=== PATIENT | female | born 2000 | race Caucasian/White ===

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

== ENCOUNTER 2021-01-03 13:36 | Emergency (ER) | payer MEDICAID, SELFPAY ==
[2021-01-03 14:06] VITALS: BP 99/60; PULSE 104; RESP 18; TEMP 36.3; O2SAT 99; BMI 29.5
[2021-01-03] MEDS: metoclopramide 5 mg/mL SDV 2 mL 10 MG IVP (15:04)
[2021-01-03] MEDS: sodium chloride 0.9% 1,000 ML 999 ML IV (15:04)
[2021-01-03] MEDS: ondansetron 2 mg/ML SDV 2 mL 4 MG IVP (15:08)
[2021-01-03 15:10] VITALS: BP 113/79; PULSE 105; RESP 18; O2SAT 99
--- NOTE | 2021-01-03 15:12 | PC.NURSE ---
heart tones auscultated at BS, FHT 150 bpm.
[2021-01-03 15:28] LABS: Basophils % 0.3 %; Hematocrit 39.7 % (37.0-47.0); Hemoglobin 13.4 g/dL (11.5-15.3); Lymphocytes # 0.6 10^3/uL (1.5-6.5); Lymphocytes % 4.4 %; Mean Corpuscular HGB Conc 33.8 g/dL (30.0-36.0); Mean Corpuscular Hemoglobin 31.5 pg (28.0-34.0); Mean Corpuscular Volume 93.4 fL (81-99); Mean Platelet Volume 11.7 fL (7.4-10.4); Monocytes # 0.2 10^3/uL (0.2-0.9); Monocytes % 1.7 %; Neutrophils % 93.2 %; Nucleated Red Blood Cells % 0 %; Platelet Count 239 10^3/cmm (130-400); Red Blood Count 4.25 10^6/uL (4.1-5.3); Red Cell Distribution Width 12.3 % (12.1-15.1); White Blood Count 13.8 10^3/uL (4.5-13.0)
[2021-01-03 15:29] LABS: Bilirubin Urine Neg (Negative); Blood Urine Neg (Negative); Glucose Urine UA Norm (Normal); Ketones Urine 2+ (Negative); Nitrate Urine Negative (Negative); Protein Urine Neg (Negative); Urine Appearance SL Hazy (CLEAR); Urine Color Dark Yellow (Yellow); pH Urine 5 (5-7)
[2021-01-03 15:30] LABS: Add Urine Culture? No; Add Urine Microscopic? YES; Bacteria Urine 1+ /hpf; Leukocyte Esterase Urine Trace (Negative); Squamous Epithelial Cell Urine 15-25 /hpf (0-5); Urobilinogen Urine Norm (Negative)
--- NOTE | 2021-01-03 15:51 | ED_ITS ---
HPI - Nausea/Vomiting/Diarrhea General: Chief complaint: Nausea/Vomiting/Diarrhea Stated complaint: 16 WKS PREG, VOMITING, DIARRHEA Time Seen by Provider: 01/03/21 14:44 Source: patient Mode of arrival: ambulatory Limitations: no limitations History of Present Illness: HPI Narrative: 20-year-old female patient presents to the emergency department with nausea vomiting diarrhea since 3 AM this morning. She reports has taken prescribed Zofran, could not tolerate oral dosing as she continues to vomit up the medication. She is approximately 16 weeks . She denies fever, reports chills, she reports recent exposure to her [id number] several days ago who was also experiencing similar symptoms. She reports not able to hold down water. She denies abdominal pain with exception discomfort related to nausea and vomiting. She denies hematemesis or hematochezia. She reports symptoms of urinary tract infection on and off for the past week. She states was going to mention it to her REFERENCE SERVICES HEAD at next appointment. She denies symptoms upon exam. MD elicited complaint: nausea, vomiting and diarrhea Description of vomiting: watery and bilious Description of diarrhea: watery Associated nausea: Yes Associated abdominal pain: No Severity: moderate Associated symtoms: Reports dysuria (Occasional burning), fevers/chills and nausea; Denies anxiety, bloating, chest pain, diaphoresis, headache(s) or palpitations Review of Systems General: Reports: 10 or more systems reviewed and unremarkable except in HPI and below Const: Denies: fever(s), chills or diaphoresis Eyes: Denies: blurry vision or eye redness ENMT: Denies: throat pain, dental pain or disequilibrium Card: Denies: chest pain, palpitations or irregular heart rhythm Resp: Denies: dyspnea, productive cough, non-productive cough or wheezing GI: Reports: nausea, vomiting and diarrhea; Denies: abdominal pain, hematemesis, heartburn, constipation or bloating : Reports: dysuria (Occasional burning); Denies: difficulty voiding, urinary frequency, urinary urgency, urinary hesitancy, urinary incontinence, hematuria, vaginal odor, vaginal bleeding, vaginal discharge or pelvic pain Musc: Denies: neck pain, back pain, joint pain or joint warmth Skin/Breast: Denies: rash, pruritus, erythema, skin tenderness or changes in skin color Neuro: Denies: headache(s), weakness in extremities or behavioral changes Psych: Denies: anxiety or depression Pramod/Lymph: Denies: easy bruising PFSH ED PFSH: Medical History Depression No pertinent past medical history neghx: htn,dm,thyroid,dvt/pe,herpes ---denies partner with herpes PCP: None Onychocryptosis Phalanx fracture, foot Surgical History No history of previous surgery Family History Grandfather Diabetes paternal Thyroid disease Maternal Grandmother Colon cancer maternal---dx age 50's Thyroid disease Maternal Denies family history of Ovarian cancer Hypercholesteremia Breast cancer Hypertension Uterine cancer Stroke Social History Smoking and tobacco status: never smoked Second hand smoke exposure: No Alcohol intake: never Substance/Drug Use: never Lives independently: No Female Reproductive History: Date of last menstrual period: 11/05/19 Physical Exam Const: COMMON NORMALS: patient oriented x3 and alert GENERAL APPEARANCE: cooperative, well kempt, well developed and other (Appears uncomfortable due to vomiting) ORIENTATION/CONSCIOUSNESS: Yes awake, Yes oriented to person, Yes oriented to place, Yes oriented to time and Yes Other orientation findings (Actively vomiting) HENMT: COMMON NORMALS: normocephalic, Normal external nose present and moist oral mucous membranes HEAD & SCALP: normocephalic NOSE: Normal external nose present Eye: COMMON NORMALS: Equal, round and reactive pupils present and EOMs intact bilaterally GENERAL EYE: appearance normal, both eyes and all related structures PUPIL: Yes Equal, round and reactive pupils present Neck/C-Spine: COMMON NORMALS: full ROM and no lymphadenopathy GENERAL: Yes normal visual inspection and Yes trachea midline CERVICAL SPINE: Yes cervical ROM normal Lymph: LYMPHATIC: no lymphadenopathy noted Chest: COMMONS NORMALS: normal inspection of the chest and normal palpation of entire chest wall Resp: COMMON NORMALS: normal respiratory effort, No retractions, No use of accessory muscles and clear to auscultation bilaterally EFFORT & INSPECTION: Yes able to speak in complete sentences, No labored and No audible wheezes AUSCULTATION: clear to auscultation bilaterally Cardio: COMMON NORMALS: regular rate, regular rhythm, S1 normal heart sound present, S2 normal heart sound present and Peripheral pulses 2+ throughout RATE: regular rate RHYTHM: regular rhythm HEART SOUNDS: S1 normal heart sound present and S2 normal heart sound present PERIPHERAL PULSES: Peripheral pulses 2+ throughout GI: COMMON NORMALS: Soft to palpation and non-tender INSPECTION: Yes normal to inspection, No abdominal wall ecchymosis, No abdominal distension, No central obesity, Yes gravid abdomen and Yes other (Actively vomiting) PALPATION: Yes Soft to palpation and No Tenderness to palpation present (GI) : COMMON NORMALS: Yes no CVA tenderness BLADDER/KIDNEY EXAM: Yes no CVA tenderness Back/Pelvis: COMMON NORMALS: no CVA tenderness, thoracic and lumbar spine normal to inspection, no thoracic nor lumbar tenderness, thoraco-lumbar ROM normal and straight leg raise negative bilaterally Extremity: COMMON NORMALS: normal to inspection, full ROM, capillary refill normal and no pedal edema GENERAL: Yes normal exam except as noted Neuro: COMMON NORMALS: patient oriented x3 and no focal motor deficits SENSORIUM/ORIENTATION: Yes alert, Yes oriented to person, Yes oriented to place and Yes oriented to time SPEECH: speech normal GAIT: Yes Normal gait present MOTOR EXAM: 5/5 motor strength present throughout Psych: COMMON NORMALS: mental status grossly normal, Normal thought process pr esent and cooperative APPEARANCE: Yes well kempt ACTIVITY/MOTOR BEHAVIOR: Yes appropriate eye contact THOUGHT PROCESS: Normal thought process present Skin: COMMON NORMALS: no rashes or lesions noted, no wounds, turgor normal, no petechiae and no mottling GENERAL SKIN EXAM: no rashes or lesions noted, elasticity normal and turgor normal Course Vital Signs: Vital signs: Vital Signs Temperature 97.3 F L 01/03/21 14:06 Pulse Rate 98 01/03/21 16:10 Respiratory Rate 18 01/03/21 17:08 Blood Pressure 118/60 01/03/21 16:10 Pulse Oximetry 98 01/03/21 16:10 MDM - Nausea/Vomiting/Diarrhea MDM Narrative: Medical decision making narrative: Pleasant 20-year-old female patient who is 16 weeks presents to the emergency department with intractable vomiting with nausea. heart tones were strong, 150 heart rate. She received IV Reglan and Zofran here in the ED along with IV fluid. Nausea and vomiting stopped. She was able to tolerate ice chips and water here in the ED. She states felt so much better and requests to go home. Serology findings without acute process. Urinalysis did reveal positive white b lood cells and bacteria, negative leukoesterase and nitrates.. She was placed on Macrobid 100 mg twice daily for 5 days. She did state urinary symptoms that have waxed and waned over the past several days. She denied flank pain, lower pubic pain, denied abdominal pain. She did not exhibit vaginal discharge or bleeding. She remained afebrile. White blood count elevated slightly secondary to vomiting. She is advised to return to the emergency department if she developed vomiting despite use of Zofran and Reglan. Lab Data: Labs: Lab Results 01/03/21 01/03/21 01/03/21 Range/Units 14:50 14:50 15:02 WBC 13.8 H (4.5-13.0) 10^3/ uL RBC 4.25 (4.1-5.3) 10^6/u L Hgb 13.4 (11.5-15.3) g/dL Hct 39.7 (37.0-47.0) % MCV 93.4 (81-99) fL MCH 31.5 (28.0-34.0) pg MCHC 33.8 (30.0-36.0) g/dL RDW 12.3 (12.1-15.1) % Plt Count 239 (130-400) 10^3/c mm MPV 11.7 H (7.4-10.4) fL Neut % (Auto) 93.2 % Lymph % (Auto) 4.4 % [place] % (Auto) 1.7 % Eos % (Auto) 0.0 % Baso % (Auto) 0.3 % Neut # (Auto) 12.90 H (1.8-8.0) 10^3/u L Lymph # (Auto) 0.6 L (1.5-6.5) 10^3/u L [place] # (Auto) 0.2 (0.2-0.9) 10^3/u L Eos # (Auto) 0.0 (0.0-0.8) 10^3/u L Baso # (Auto) 0.0 (0.0-0.1) 10^3/u L Nucleated RBC % (a uto) 0 % Nucleated RBCs # 0.0 /100WBC Sodium Cancelled Potassium Cancelled Chloride Cancelled Carbon Dioxide Cancelled Anion Gap Cancelled BUN Cancelled Creatinine Cancelled GFR Calculation Cancelled Glucose Cancelled Calculated Osmolal ity Cancelled Calcium Cancelled Total Bilirubin Cancelled AST Cancelled ALT Cancelled Alkaline Phosphata se Cancelled Total Protein Cancelled Albumin Cancelled Globulin Cancelled Lipase Cancelled Urine Color Dark yellow (Yellow) Urine Appearance Sl hazy (CLEAR) Urine pH 5 (5-7) Ur Specific Gravit y 1.030 (1.005-1.030) Urine Protein Neg (Negative) Urine Glucose (UA) Norm (Normal) Urine Ketones 2+ H (Negative) Urine Blood Neg (Negative) Urine Nitrate Negative (Negative) Urine Bilirubin Neg (Negative) Urine Urobilinogen Norm (Negative) mg/dL Ur Leukocyte Janelle ase Trace H (Negative) Urine RBC None (0-2) /hpf Urine WBC 5-10 H (0-5) /hpf Ur Squamous Epith Cells 15-25 H (0-5) /hpf Amorphous Sediment Not Reportable Urine Bacteria 1+ H (NONE) /hpf 01/03/21 Range/Units 15:48 WBC (4.5-13.0) 10^3/ uL RBC (4.1-5.3) 10^6/u L Hgb (11.5-15.3) g/dL Hct (37.0-47.0) % MCV (81-99) fL MCH (28.0-34.0) pg MCHC (30.0-36.0) g/dL RDW (12.1-15.1) % Plt Count (130-400) 10^3/c mm MPV (7.4-10.4) fL Neut % (Auto) % Lymph % (Auto) % [place] % (Auto) % Eos % (Auto) % Baso % (Auto) % Neut # (Auto) (1.8-8.0) 10^3/u L Lymph # (Auto) (1.5-6.5) 10^3/u L [place] # (Auto) (0.2-0.9) 10^3/u L Eos # (Auto) (0.0-0.8) 10^3/u L Baso # (Auto) (0.0-0.1) 10^3/u L Nucleated RBC % (a uto) % Nucleated RBCs # /100WBC Sodium 135 L Potassium 4.0 Chloride 103 Carbon Dioxide 19 L Anion Gap 17.0 BUN 8 Creatinine 0.4 L GFR Calculation 205.6 H Glucose 97 Calculated Osmolal ity 278 L Calcium 8.2 L Total Bilirubin 0.3 AST 10 ALT 10 Alkaline Phosphata se 76 Total Protein 7.2 Albumin 3.6 Globulin 3.6 Lipase 18 Urine Color (Yellow) Urine Appearance (CLEAR) Urine pH (5-7) Ur Specific Gravit y (1.005-1.030) Urine Protein (Negative) Urine Glucose (UA) (Normal) Urine Ketones (Negative) Urine Blood (Negative) Urine Nitrate (Negative) Urine Bilirubin (Negative) Urine Urobilinogen (Negative) mg/dL Ur Leukocyte Janelle ase (Negative) Urine RBC (0-2) /hpf Urine WBC (0-5) /hpf Ur Squamous Epith Cells (0-5) /hpf Amorphous Sediment Urine Bacteria (NONE) /hpf Discharge Plan Discharge Patient Disposition: Home Clinical Impression: Mild dehydration Nausea & vomiting Qualifiers: Vomiting type: unspecified Vomiting Intractability: intractable Qualified Code(s): R11.2 - Nausea with vomiting, unspecified UTI (urinary tract infection) Qualifiers: Urinary tract infection type: acute cystitis Hematuria presence: without hematuria Qualified Code(s): N30.00 - Acute cystitis without hematuria Condition: Stable Prescriptions: New Macrobid 100 mg capsule 100 mg PO BID 5 Days Qty: 10 RF: 0 Reglan 10 mg tablet 10 mg PO Q6H PRN (Reason: nausea and vomiting) Qty: 10 RF: 0 Zofran 4 mg tablet 4 mg PO Q4H 5 Days Qty: 14 RF: 0 No Action Gummy 400 mcg-35 mg -25 mg-5 mg tablet,chewable 2 tab PO BEDTIME RF: 0 Discharge Orders: Discharge ED (Routine); Ordered 01/03/21 Ordered By: Kandy Lopez Patient Instructions: Opioid Safety Coding Level of Care Code ED Reservations Clerk for Chg Fwd Exam Comprehensive
[2021-01-03 16:10] VITALS: BP 118/60; PULSE 98; RESP 18; O2SAT 98
[2021-01-03 16:18] LABS: Alanine Aminotransferase 10 U/L (0-33); Albumin Level 3.6 g/dL (3.5-5.2); Alkaline Phosphatase 76 IU/L (35-105); Aspartate Amino Transferase 10 U/L (0-32); Blood Urea Nitrogen 8 mg/dL (6-20); Calcium 8.2 mg/dL (8.5-10.5); Carbon Dioxide 19 mmol/L (22-29); Chloride 103 mmol/L (98-107); Globulin 3.6 g/dL (1.3-4.6); Glomerular Filtration Rate 205.6 mL/min (90-130); Glucose 97 mg/dL (65-115); Lipase 18 U/L (13-60); Osmolality Calculated 278 mOsm/kg (285-295); Sodium 135 mmol/L (136-145); Total Bilirubin 0.3 mg/dL (0.15-1.2); Total Protein 7.2 g/dL (6.6-8.7)
[2021-01-03 17:00] VITALS: RESP 18
[2021-01-03 17:08] VITALS: RESP 18
== END 2021-01-03 17:23 | disposition home or self-care (01) ==
PROVIDERS: Emergency Provider Nurse Practitioner Family
DX: N30.00 Acute cystitis without hematuria (principal); R11.2 Nausea with vomiting, unspecified; E86.0 Dehydration
CPT/HCPCS: 80053; 81001; 83690; 85025; 96361; 96374; 96375; 99283; J2405; J2765; J7030

== ENCOUNTER → 2021-01-06 08:25 | Outpatient (BNVA) | payer MEDICAID, SELFPAY | PROVIDERS: Visit Provider Nurse Practitioner Women's Health | DX: Z34.92 Encounter for supervision of normal pregnancy, unspecified, second trimester | CPT/HCPCS: 81000; 87086 ==

== ENCOUNTER → 2021-02-05 07:52 | Outpatient (BNVA) | payer MEDICAID, SELFPAY | PROVIDERS: Visit Provider Obstetrics & Gynecology | DX: Z34.92 Encounter for supervision of normal pregnancy, unspecified, second trimester (principal); B37.3 Candidiasis of vulva and vagina | CPT/HCPCS: 81000; 87481; 87512; 87799 ==

== ENCOUNTER → 2021-02-25 11:05 | Outpatient (BNVA) | payer MEDICAID, SELFPAY | PROVIDERS: Visit Provider Nurse Practitioner Women's Health | DX: Z34.92 Encounter for supervision of normal pregnancy, unspecified, second trimester (principal) | CPT/HCPCS: 81000 ==

== ENCOUNTER → 2021-03-05 09:32 | Outpatient (BNVA) | payer MEDICAID, SELFPAY | PROVIDERS: Visit Provider Obstetrics & Gynecology | DX: Z34.90 Encounter for supervision of normal pregnancy, unspecified, unspecified trimester (principal) | CPT/HCPCS: 81000; 87086; 87481; 87512; 87798; 87799 ==

== ENCOUNTER → 2021-03-25 11:56 | Outpatient (BNVA) | payer MEDICAID, SELFPAY | PROVIDERS: Visit Provider Obstetrics & Gynecology | DX: Z34.92 Encounter for supervision of normal pregnancy, unspecified, second trimester (principal) | CPT/HCPCS: 81000; 82950; 85025 ==

== ENCOUNTER → 2021-03-27 08:39 | Outpatient (BNVA) | payer MEDICAID, SELFPAY | PROVIDERS: Visit Provider Obstetrics & Gynecology | DX: D64.9 Anemia, unspecified (principal) | CPT/HCPCS: 82728; 82746; 83550 ==

== ENCOUNTER 2021-03-31 22:45 | Outpatient (CLI) | payer MEDICAID, SELFPAY ==
[2021-03-31 22:45] VITALS: BMI 33.0
[2021-03-31 23:08] VITALS: BP 118/57; PULSE 80
[2021-03-31 23:38] VITALS: BP 109/53; PULSE 72
[2021-03-31 23:44] LABS: Add Urine Culture? No; Add Urine Microscopic? YES; Bacteria Urine 2+ /hpf; Bilirubin Urine Neg (Negative); Blood Urine Neg (Negative); Calcium Oxalate Crystals Urine 25-40 /hpf; Glucose Urine UA Norm (Normal); Ketones Urine Negative (Negative); Leukocyte Esterase Urine 2+ (Negative); Mucus Urine 1+ /hpf; Nitrate Urine Negative (Negative); Protein Urine Neg (Negative); RBC Urine 0-4 /hpf (0-2); Specific Gravity, Urine 1.025 (1.005-1.030); Squamous Epithelial Cell Urine 15-25 /hpf (0-5); Urine Appearance Cloudy (CLEAR); Urine Color Yellow (Yellow); Urobilinogen Urine Norm (Negative); WBC Urine 25-40 /hpf (0-5); pH Urine 5 (5-7)
[2021-03-31] MEDS: acetaminophen 500 mg Tablet 1000 MG PO (23:45)
[2021-03-31] MEDS: lactated ringers 1,000 ML 999 ML IV (23:46)
[2021-04-01 00:09] VITALS: BP 106/54; PULSE 69
[2021-04-01 00:38] VITALS: BP 104/54; PULSE 69
[2021-04-01] MEDS: lactated ringers 1,000 ML 999 ML IV (00:59)
[2021-04-01] MEDS: ketorolac 30 mg/mL INJ IVP (01:04)
[2021-04-01 01:09] VITALS: BP 114/56; PULSE 67
[2021-04-01 01:38] VITALS: BP 105/51; PULSE 72
[2021-04-01 02:14] VITALS: BP 105/51; PULSE 72; RESP 16
== END 2021-04-01 02:14 | disposition home or self-care (01) ==
LOC: OPOB 22:56 → OBGYN 22:57
PROVIDERS: Visit Provider Obstetrics & Gynecology
DX: O26.899 Other specified pregnancy related conditions, unspecified trimester (principal); Z3A.00 Weeks of gestation of pregnancy not specified; R10.9 Unspecified abdominal pain
CPT/HCPCS: 59025; 81001; 87086; 96360; 96361; 99211; J1885

== ENCOUNTER 2021-04-05 23:08 | Outpatient (CLI) | payer MEDICAID, SELFPAY ==
[2021-04-05 23:19] VITALS: BP 120/56; PULSE 70
[2021-04-05 23:25] VITALS: BMI 31.9
[2021-04-06] MEDS: HYDROcodone-acetaminophen 5-325 mg Tablet 1 TAB PO (00:36)
[2021-04-06 01:53] LABS: Bilirubin Urine Neg (Negative); Blood Urine Neg (Negative); Glucose Urine UA Norm (Normal); Ketones Urine Negative (Negative); Leukocyte Esterase Urine Negative (Negative); Nitrate Urine Negative (Negative); Protein Urine Neg (Negative); Urine Appearance Clear (CLEAR); Urine Color Straw (Yellow); Urobilinogen Urine Norm (Negative); pH Urine 5 (5-7)
[2021-04-06 01:54] LABS: Add Urine Culture? No; Bacteria Urine TRACE /hpf; Squamous Epithelial Cell Urine 0-4 /hpf (0-5); WBC Urine 0-4 /hpf (0-5)
[2021-04-06 02:10] VITALS: BP 115/56; PULSE 60
[2021-04-06 02:20] VITALS: BP 115/56; PULSE 60; RESP 16
== END 2021-04-06 02:30 | disposition home or self-care (01) ==
LOC: OPOB 23:10 → OBGYN 23:12
PROVIDERS: Visit Provider Obstetrics & Gynecology
DX: O46.90 Antepartum hemorrhage, unspecified, unspecified trimester (principal); Z3A.00 Weeks of gestation of pregnancy not specified
CPT/HCPCS: 51702; 59025; 81001; 99211

== ENCOUNTER → 2021-04-16 11:06 | Outpatient (BNVA) | payer MEDICAID, SELFPAY | PROVIDERS: Visit Provider Obstetrics & Gynecology | DX: Z34.80 Encounter for supervision of other normal pregnancy, unspecified trimester (principal) | CPT/HCPCS: 81000 ==

== ENCOUNTER → 2021-04-17 14:36 | Outpatient (BNVA) | payer MEDICAID, SELFPAY | PROVIDERS: Visit Provider Obstetrics & Gynecology | DX: Z34.80 Encounter for supervision of other normal pregnancy, unspecified trimester (principal) | CPT/HCPCS: 81000 ==

== ENCOUNTER → 2021-04-23 10:13 | Outpatient (BNVA) | payer MEDICAID, SELFPAY | PROVIDERS: Visit Provider Obstetrics & Gynecology | DX: Z34.80 Encounter for supervision of other normal pregnancy, unspecified trimester (principal) | CPT/HCPCS: 81000 ==

== ENCOUNTER → 2021-05-06 08:16 | Outpatient (BNVA) | payer MEDICAID, SELFPAY | PROVIDERS: Visit Provider Nurse Practitioner Women's Health | DX: Z34.80 Encounter for supervision of other normal pregnancy, unspecified trimester (principal) | CPT/HCPCS: 81000; 87086 ==

== ENCOUNTER → 2021-05-22 08:06 | Outpatient (BNVA) | payer MEDICAID, SELFPAY | PROVIDERS: Visit Provider Obstetrics & Gynecology | DX: Z34.80 Encounter for supervision of other normal pregnancy, unspecified trimester (principal) | CPT/HCPCS: 81000; 87081 ==

== ENCOUNTER → 2021-05-28 08:50 | Outpatient (BNVA) | payer MEDICAID, SELFPAY | PROVIDERS: Visit Provider Obstetrics & Gynecology | DX: Z34.92 Encounter for supervision of normal pregnancy, unspecified, second trimester (principal) | CPT/HCPCS: 81000 ==

== ENCOUNTER 2021-06-03 19:27 | Outpatient (CLI) | payer MEDICAID, SELFPAY ==
[2021-06-03] VITALS (12 sets, daily range): BP systolic 101–123; BP diastolic 50–68; PULSE 66–75; RESP 16; TEMP 37.1–37.6; BMI 32.5
[2021-06-03 21:35] LABS: Nitrazine Paper, PH Negative
== END 2021-06-03 22:15 | disposition home or self-care (01) ==
LOC: OPOB 19:28 → OBGYN 19:28
PROVIDERS: Obstetrics & Gynecology; Visit Provider Obstetrics & Gynecology
DX: O26.899 Other specified pregnancy related conditions, unspecified trimester (principal); Z3A.00 Weeks of gestation of pregnancy not specified; R10.9 Unspecified abdominal pain; M54.5 Low back pain
CPT/HCPCS: 59025; 83986; 99211

== ENCOUNTER 2021-06-04 09:15 | Outpatient (CLI) | payer MEDICAID, SELFPAY ==
[2021-06-04 09:15] VITALS: RESP 18
[2021-06-04 09:32] VITALS: BP 123/67; PULSE 74
[2021-06-04 09:35] VITALS: TEMP 36.2
[2021-06-04 09:49] VITALS: BP 119/73; PULSE 65
[2021-06-04 10:01] VITALS: BMI 33.0
[2021-06-04 10:03] VITALS: BP 122/73; PULSE 64
[2021-06-04 10:19] VITALS: BP 125/61; PULSE 57
== END 2021-06-04 10:25 | disposition home or self-care (01) ==
LOC: OPOB 09:20 → OBGYN 09:30
PROVIDERS: Visit Provider Obstetrics & Gynecology
DX: O36.8190 Decreased fetal movements, unspecified trimester, not applicable or unspecified (principal); Z3A.00 Weeks of gestation of pregnancy not specified
CPT/HCPCS: 59025; 81000; 87086; 87184

== ENCOUNTER 2021-06-08 08:57 | Outpatient (CLI) | payer MEDICAID, SELFPAY ==
[2021-06-08 09:16] VITALS: BP 125/69; PULSE 75
[2021-06-08 09:23] VITALS: BP 130/77; PULSE 83
[2021-06-08 09:36] VITALS: BP 117/67; PULSE 98
[2021-06-08 09:56] VITALS: BP 115/73; PULSE 76
[2021-06-08 10:16] VITALS: BP 120/68; PULSE 74
[2021-06-08 10:31] VITALS: BP 120/68; PULSE 74; RESP 18; TEMP 36.7
[2021-06-08 18:56] LABS: Nitrazine Paper, PH Negative
== END 2021-06-08 10:25 | disposition home or self-care (01) ==
LOC: OPOB 09:02 → OBGYN 09:03
PROVIDERS: Absent Provider Obstetrics & Gynecology; Family Provider Obstetrics & Gynecology; Visit Provider Obstetrics & Gynecology
DX: O26.899 Other specified pregnancy related conditions, unspecified trimester (principal); Z3A.00 Weeks of gestation of pregnancy not specified; R10.9 Unspecified abdominal pain; N89.8 Other specified noninflammatory disorders of vagina
CPT/HCPCS: 59025; 83986; 99211

== ENCOUNTER → 2021-06-11 09:40 | Outpatient (BNVA) | payer MEDICAID, SELFPAY | PROVIDERS: Family Provider Obstetrics & Gynecology; Visit Provider Obstetrics & Gynecology | DX: Z34.92 Encounter for supervision of normal pregnancy, unspecified, second trimester (principal) | CPT/HCPCS: 81000; 87635 ==

== ENCOUNTER 2021-06-12 17:52 | Inpatient (IN) | payer MEDICAID, SELFPAY ==
[2021-06-12] VITALS (23 sets, daily range): BP systolic 109–139; BP diastolic 60–74; PULSE 55–84; RESP 16–19; TEMP 36.1–36.4; O2SAT 93–100; BMI 32.7
[2021-06-12 17:05] LABS: Actim Prom Positive
[2021-06-12] MEDS: dextrose 5%-lactated ringers 1,000 ML 125 ML IV (18:09)
[2021-06-12 18:26] LABS: Basophils % 0.3 %; Eosinophils % 0.4 %; Hematocrit 40.1 % (37.0-47.0); Hemoglobin 13.3 g/dL (11.5-15.3); Lymphocytes # 1.9 10^3/uL (1.5-6.5); Lymphocytes % 27.7 %; Mean Corpuscular HGB Conc 33.2 g/dL (30.0-36.0); Mean Corpuscular Volume 90.5 fl (81-99); Mean Platelet Volume 12.9 fL (7.4-10.4); Monocytes # 0.4 10^3/uL (0.2-0.9); Monocytes % 6.4 %; Neutrophils # 4.38 10^3/uL (1.8-8.0); Neutrophils % 64.8 %; Nucleated Red Blood Cells % 0 %; Platelet Count 156 10^3/cmm (130-400); Red Blood Count 4.43 10^6/uL (4.1-5.3); White Blood Count 6.8 10^3/uL (4.5-13.0)
[2021-06-12] MEDS: oxytocin 30 UNIT/500 ML BAG IV (19:50)
[2021-06-12] MEDS: fentaNYL 50 mcg/mL INJ 2mL IVP (22:41)
[2021-06-12] MEDS: ondansetron 2 mg/ML SDV 2 mL 4 MG IVP ×2 (22:49→23:58)
[2021-06-12] MEDS: lactated ringers 1,000 ML 999 ML IV (23:04)
[2021-06-13] VITALS (220 sets, daily range): BP systolic 96–145; BP diastolic 51–80; PULSE 48–113; RESP 16–20; TEMP 35.8–37.6; O2SAT 82–100
--- NOTE | 2021-06-13 00:18 | P.ANESASSM_ITS ---
Pre-Anesthetic Assessment Pre-Anesthetic Assessment: Height/Weight: Height 1.7 m Weight 94.801 kg Temp Pulse Resp BP Pulse Ox 97.0 F L 66 19 H 125/74 98 06/12/21 21:34 06/13/21 00:11 06/12/21 22:41 06/12/21 23:07 06/13/21 00:11 Preop Diagnosis: labor pain Proposed Procedure: epidural Familial anesthetic complications: none Was Beta Ina taken within 24 hours: N/A Was Clonidine taken within 24 hours: N/A Social: Social History: No alcohol and No tobacco Exam: Pre-Anes Outpt Exam: alert, oriented x 3, clear to auscultation bilaterally and regular rate & rhythm Airway: Submandibular: WNL Cervical ROM: WNL MP: 2 Dentition: Full Pulmonary: Pulmonary: None reported CV/HEM: CV/HEM: Anemia : : UTI Hepatic: Hepatic: None reported GI: GI: GERD Metabolic: Metabolic: None reported Musc/skel: Musc/skel: None reported Neuropsych: Neuropsych: None reported Comments: PTSD Anesthetic Plan: ASA status: 2 Anesthesia: Regional (specify below) Risk of > 500 ml blood loss (7ml/kg in children): No Meds/Allergies Current Medications: Current Medications Generic Name Dose Route Start Last Admin Trade Name Freq PRN Reason Stop Dose Admin Dextrose/Lactated Ringer's 1,000 mls @ 125 m ls/hr 06/12/21 17:30 06/12/21 18:09 Dextrose 5%-Lact ated Ringers IV 125 mls/hr .Q8H ROOPA Administration Ropivacaine 200 mg in 100 mls @ 13 mls/hr 06/12/21 19:30 06/12/21 20:40 Naropin Premix EPIDURAL Not Given .Q7H42M ROOPA Oxytocin 30 unit in 500 ml s @ 1 mls/hr 06/12/21 19:30 06/12/21 21:50 Pitocin IV 5 milliunit/min .Q24H ROOPA 5 mls/hr Titration Protocol 1 MILLIUNIT/MIN Ondansetron HCl 4 mg 06/12/21 17:23 06/12/21 22:49 Ondansetron 2 Mg /Ml Sdv 2 Ml IVP 4 mg Q4H PRN Administration NAUSEA AND VOMITI NG PFSH Anesthesia 2 PFSH: Medical History Depression No pertinent past medical history neghx: htn,dm,thyroid,dvt/pe,herpes ---denies partner with herpes PCP: None Surgical History No history of previous surgery Family History Grandfather Diabetes paternal Thyroid disease Maternal Grandmother Colon cancer maternal---dx age 50's Thyroid disease Maternal Denies family history of Ovarian cancer Hypercholesteremia Breast cancer Hypertension Uterine cancer Stroke Social History Smoking and tobacco status: never smoked Female Reproductive History: Date of last menstrual period: 11/05/19 : 1 Data Anesthesia CBC & Chem 7: 06/12/21 17:50 Other Labs: Laboratory Results - last 48 hr 06/12/21 06/12/21 16:48 17:50 WBC 6.8 RBC 4.43 Hgb 13.3 Hct 40.1 MCV 90.5 MCH 30.0 MCHC 33.2 RDW 12.0 L Plt Count 156 MPV 12.9 H Neut % (Auto) 64.8 Lymph % (Auto) 27.7 [place] % (Auto) 6.4 Eos % (Auto) 0.4 Baso % (Auto) 0.3 Neut # (Auto) 4.38 Lymph # (Auto) 1.9 [place] # (Auto) 0.4 Eos # (Auto) 0.0 Baso # (Auto) 0.0 Nucleated RBC % (auto) 0 Nucleated RBCs # 0.0 Insulin-like GF I Positive Cardiac Studies: No Data to Display
--- NOTE | 2021-06-13 00:52 | P.ANES_ITS ---
Anesthesia Procedures Procedure/Date: 06/13/21 epidural Procedure Narrative: epidural complete, bolus given, epidural pump initiated with FIELD PARTY MANAGER education given, vitals taken during procedure using OBIX system and satisfactory throughout, patient admits to decrease pain, report of procedure to OB RN Epidural: Time Out Performed: Yes Consents Signed: Procedure Consent Consent: requested by attending/covering physician, from patient, risks and benefits reviewed and patient agrees to proceed Lumbar Level: L3-L4 Epidural position: sitting Epidural procedure: sterile prep of area, 1% lidocaine to numb the area (3 mL), 18 g needle, negative for paresthesia passed, neg for paresthesia, test dose given, 1.5% xylocaine 1:200k epi (5 mL), 0.2% Ropivacaine bolus ml (5 mL), placed PCEA, no systemic response, sterile dressing applied, L.U.D. no apparent complications and 0.2% Ropiavacaine @ mls/hr (13 mL/hr)
[2021-06-13] MEDS: lactated ringers 1,000 ML 999 ML IV (01:07)
--- NOTE | 2021-06-13 01:08 | PC.NURSE ---
RN at bedside, patient educated that may be indicated if there are concerns with the baby's heart beat. Patient and significant other verbalize understanding and all questions answered at this time.
[2021-06-13] MEDS: metoclopramide 5 mg/mL SDV 2 mL IV (04:53)
[2021-06-13] MEDS: dextrose 5%-lactated ringers 1,000 ML 125 ML IV (05:00)
--- NOTE | 2021-06-13 06:53 | ANES.PROC ---
Anesthesia Procedures Procedure/Date: 06/13/21 epidural bolus Procedure Narrative: I was called about patient having left hip pain with contraction following epidural placement. Patient states 10/10 pain. After assessing the epidural, I gave 10 mL of 2% lidocaine in her epidural catheter. Report to OB RN
--- NOTE | 2021-06-13 08:58 | PM.OPHPUD ---
Labor & Delivery H&P Update Date of Procedure: June 13, 2021 Date H&P Performed: 06/11/21 H&P update information: I have reviewed H&P completed within last 30 days, I have examined patient prior to procedure, Changes to prior documentation as noted here and H&P is in [facility] [place] EMR on date indicated Changes to previous documentation: Ruptured membranes with cervix 1, 75 and 3 per RN at initial exam Admission Diagnosis: Preop diagnosis: labor pain
--- NOTE | 2021-06-13 09:03 | ANES.PROC ---
Anesthesia Procedures Procedure/Date: 06/13/21 Other Information: Pt with pressure and hip pain. Dilated to 10 with small cervical lip. Lidocaine 5cc and Fentanyl 100 mcg bolus given. some relief expressed
--- NOTE | 2021-06-13 11:25 | PM.DELIVERY ---
Delivery Note: Date of delivery: June 13, 2021 - PRE-DELIVERY DIAGNOSIS: 21-year-old 1 para 0 at 39 weeks and 2 days Premature rupture of membranes GBS positive---received Ancef Meconium-stained amniotic fluid POST-DELIVERY DIAGNOSIS: Vaginal delivery on 06/13/2021 PROCEDURE: Vaginal delivery on 06/13/2021 ANESTHESIA: Epidural anesthesia, local anesthesia with 2% lidocaine DELIVERING PHYSICIAN: Inez Shields FACOG PRE-DELIVERY COURSE: Ms. Wright is a 21 1 para 0 at 39 weeks and 2 days who presented to labor and delivery with reports of leaking of fluid that was clear that started at 4 PM. On examination on Labor and Delivery showed a category 1 tracing and no contractions on the monitor. Cervix was 1 cm 75% and -3 station and cephalic. Nitrazine was inconclusive and so active and PROM was done which was positive. She was admitted to labor and delivery with premature rupture of membranes. She was observed for 2 hours and made no cervical change and had only occasional contractions. She was started on Pitocin titrated to a maximum of 5 mIU and with this she started to have irregular contractions. She made cervical change 3 cm and was pretty uncomfortable and an epidural was placed. After the epidural she was noted to be 4 cm and was noted to have a 4 x 4. At this time it was noted that she had meconium stained amniotic fluid but is previous to this fluid was clear. After the epidural she had a couple of late decelerations which resolved with position change and she had a baseline change from the 120s to 110s but variability was moderate and accelerations were present-overall reassuring. Pitocin was turned off at this time and she was observed and tracing returned to category 1. She was aracely every 2 to 3 minutes and made cervical change to about 6 cm and then made no further cervical change. She was restarted on Pitocin and she made no further cervical change and contractions had spaced out every 6 minutes. Pitocin was started again and try to draw a maximum of 5 international units. Around this time she started to get very uncomfortable with a lot of left hip pain and she was dosed epidural with lidocaine by anesthesia. tracing again started to develop late decelerations and as a result Pitocin was turned off and position changes oxygen and fluid bolus was done after which tracing returned to category 1. Artificial rupture of membranes-4 back was performed at 6:20 AM with thick meconium fluid at which point she was 7 cm 100% and -1 station. She made steady cervical change after this and will periodically have late decelerations which responded to position change and then the tracing will return to category 1. She was fully dilated at 10 AM and set up in lithotomy position ready to push at 10:11 AM. The sample puller Dr. Lozano was notified and was present at time of delivery: 1 amniotic fluid. DELIVERY NOTE: She was set up in lithotomy position and was pushing effectively. She was noted to be +3 station and continued pushing well. The head delivered in CHARITY position, nuchal cord x1 present. The shoulders and rest of the body followed with her next push-the posterior and delivered before the anterior shoulder.. The cord was clamped and cut and baby handed to the waiting RN and sample puller Dr. Kulkarni. The placenta delivered spontaneously intact with membranes and was discarded. The fundus was noted to be firm and well contracted. The vagina and cervix were inspected and no cervical or sulcal lacerations were noted. The perineum was intact except for second-degree perineal tear which was repaired with 3-0 Vicryl in a continuous interlocking fashion. Good hemostasis and reapproximation was obtained. Rectal exam was performed and intact mucosa was confirmed. Baby boy born at 11:45 AM on 06/13/2021 with 8/9, weighing 7 pounds 15 ounces, 3610 g, 21 inches long. Placenta was delivered spontaneously intact with membranes at 10:51 AM. Cotyledons were intact , centrally inserted umbilical cord with 3 vessels noted. Estimated blood loss 300 -mL. Complications-none, both baby and mom the were left to recover in a stable condition. This documentation was created by [employer] precision optics technician software (known for inherent precision optics technician error). Every effort was made to assure accuracy of precision optics technician. Any obvious errors or omissions should be clarified with the author of the document. Coding Level of Care Code Acute Director Emergency Services for Tay Hugo
--- NOTE | 2021-06-13 15:50 | PC.NURSE ---
Patient ambulated to room OB8. Baby transported in crib. Oriented to room. Patient tolerated well and encouraged to ambulate around room without assistance at this time.
[2021-06-13] MEDS: ibuprofen 800 mg tablet PO ×2 (16:05→21:21)
[2021-06-13] MEDS: benzocaine-menthol 78 gm Canister 1 SPRAY TOPICAL (18:27)
[2021-06-13] MEDS: docusate sodium 100 mg Capsule PO (18:44)
[2021-06-13 23:11] LABS: Hematocrit 27.8 % (37.0-47.0); Hemoglobin 8.9 g/dL (11.5-15.3); Mean Corpuscular Hemoglobin 29.9 pg (28.0-34.0); Mean Corpuscular Volume 93.3 fl (81-99); Mean Platelet Volume 12.8 fL (7.4-10.4); Platelet Count 186 10^3/cmm (130-400); Red Blood Count 2.98 10^6/uL (4.1-5.3); Red Cell Distribution Width 12.5 % (12.1-15.1); White Blood Count 16.4 10^3/uL (4.5-13.0)
[2021-06-14 00:59] VITALS: BP 111/67; PULSE 89; RESP 17; O2SAT 97
[2021-06-14 04:30] VITALS: BP 105/65; PULSE 72; RESP 15; TEMP 36.7; O2SAT 97
[2021-06-14] MEDS: prenatal vitamin Capsule 1 CAP PO (08:54)
[2021-06-14] MEDS: ibuprofen 800 mg tablet PO ×3 (08:54→20:50)
[2021-06-14] MEDS: docusate sodium 100 mg Capsule PO ×2 (08:54→18:23)
--- NOTE | 2021-06-14 09:18 | PC.NURSE ---
Patient resting with eyes closed on couch. Call light visible and as close as will reach. Visitor reminded to push call light if they need anything.
[2021-06-14 09:29] LABS: Hematocrit 28.5 % (37.0-47.0); Mean Corpuscular HGB Conc 31.6 g/dL (30.0-36.0); Mean Corpuscular Hemoglobin 29.7 pg (28.0-34.0); Mean Corpuscular Volume 94.1 fl (81-99); Mean Platelet Volume 13.3 fL (7.4-10.4); Platelet Count 184 10^3/cmm (130-400); Red Blood Count 3.03 10^6/uL (4.1-5.3); Red Cell Distribution Width 12.6 % (12.1-15.1); White Blood Count 13.4 10^3/uL (4.5-13.0)
[2021-06-14 09:50] VITALS: BP 110/72; PULSE 75; RESP 16; TEMP 36.8; O2SAT 98
[2021-06-14] MEDS: HYDROcodone-acetaminophen 5-325 mg Tablet PO (10:32)
--- NOTE | 2021-06-14 12:49 | PC.NURSE ---
Patient provided towels for showering at this time.
--- NOTE | 2021-06-14 14:26 | PM.PN ---
Subjective Subjective: Interval history: SUBJECTIVE: Veena is doing well today. She states that she is a little sore on her perineum but denies any pain and states that ibuprofen helps this. She is not breast-feeding and is formula feeding without any difficulty. She denies heavy vaginal bleeding although her bleeding is heavier than her menstrual cycle. She denies fever, chills, shortness of breath and chest pain. She is voiding without any difficulty and denies dysuria. She is passing gas and tolerating regular diet. No other questions or concerns today OBJECTIVE/PHYSICAL EXAM: Gen.: No acute distress Heart: S1-S2 heard, regular rate and rhythm Lungs: Clear to auscultation bilaterally Abdomen: Soft, fundus firm below umbilicus Legs: No calf tenderness, +1 bilateral pitting pedal edema. ASSESSMENT AND PLAN: 21-year-old 1 para 1 status post vaginal delivery, day #1 -Continue routine care-p.o. pain medication as needed -Encourage ambulation -Ice packs to perineum as needed -Hemoglobin stable with vital signs stable -Anticipate discharge home tomorrow as baby is staying till tomorrow given GBS positive status during labor. Vitals/I&O/Wt Last Vital Signs Temp 98.2 F 06/14/21 09:50 Pulse 75 06/14/21 09:50 Resp 16 06/14/21 09:50 BP 110/72 06/14/21 09:50 Pulse Ox 98 06/14/21 09:50 06/13/21 06/14/21 06/14/21 22:59 06:59 14:59 Intake Total 955.8 / 1534.701 Output Total 600 / 800 950 / 1750 Balance 355.8 / 734.701 -950 / -215.299 Weight last 48 hrs Weight 209 lb Physical Exam Urinary Catheter Management^: Clemons: Cath Placed During This Visit: yes, but has since been removed by the nurse Reason for Continuing Indwelling Catheter: Decision to DC Catheter Urinary Catheter Date of Insertion: 06/13/21 Urinary Catheter Time of Insertion: 03:47 Date Urinary Catheter Removed: 06/13/21 Time Urinary Catheter Discontinued: 10:10 Data : 06/14/21 08:45 Attestations Medical Necessity Statement*: Patient needs to stay for 1 or 2 more midnights to recover from delivery Coding Level of Care Code Acute Assistant Education Director for Tay Hugo
[2021-06-14 15:28] VITALS: BP 112/68; PULSE 73; RESP 18; TEMP 36.5; O2SAT 98
--- NOTE | 2021-06-14 17:05 | PC.NURSE ---
Patient sitting on couch holding baby. Call light within sight and as close as possible.
[2021-06-14 21:40] VITALS: BP 125/78; PULSE 72; RESP 17; TEMP 36.8; O2SAT 98
[2021-06-15 04:41] VITALS: BP 95/57; PULSE 77; RESP 15; TEMP 36.7; O2SAT 98
--- NOTE | 2021-06-15 06:30 | P.DS_ITS ---
Discharge Providers OBSERVER HELPER Date of Admission: 06/12/21 17:52 Date of Discharge: 06/15/21 Attending Provider at Admission: Inez Yates MD Attending Provider at Discharge: Inez Yates MD PRE-DELIVERY DIAGNOSIS: 21-year-old 1 para 0 at 39 weeks and 2 days Premature rupture of membranes GBS positive---received Ancef Meconium-stained amniotic fluid POST-DELIVERY DIAGNOSIS: Vaginal delivery on 06/13/2021 PROCEDURE: Vaginal delivery on 06/13/2021 ANESTHESIA: Epidural anesthesia, local anesthesia with 2% lidocaine DELIVERING PHYSICIAN: Inez Shields FACOG PRE-DELIVERY COURSE: Ms. Wright is a 21 1 para 0 at 39 weeks and 2 days who presented to labor and delivery with reports of leaking of fluid that was clear that started at 4 PM. On examination on Labor and Delivery showed a category 1 tracing and no contractions on the monitor. Cervix was 1 cm 75% and -3 station and cephalic. Nitrazine was inconclusive and so active and PROM was done which was positive. She was admitted to labor and delivery with premature rupture of membranes. She was observed for 2 hours and made no cervical change and had only occasional contractions. She was started on Pitocin titrated to a maximum of 5 mIU and with this she started to have irregular contractions. She made cervical change 3 cm and was pretty uncomfortable and an epidural was placed. After the epidural she was noted to be 4 cm and was noted to have a 4 x 4. At this time it was noted that she had meconium stained amniotic fluid but is previous to this fluid was clear. After the epidural she had a couple of late decelerations which resolved with position change and she had a baseline change from the 120s to 110s but variability was moderate and accelerations were present-overall reassuring. Pitocin was turned off at this time and she was observed and tracing returned to category 1. She was aracely every 2 to 3 minutes and made cervical change to about 6 cm and then made no further cervical change. She was restarted on Pitocin and she made no further cervical change and contractions had spaced out every 6 minutes. Pitocin was started again and try to draw a maximum of 5 international units. Around this time she started to get very uncomfortable with a lot of left hip pain and she was dosed epidural with lidocaine by anesthesia. tracing again started to develop late decelerations and as a result Pitocin was turned off and position changes oxygen and fluid bolus was done after which tracing returned to category 1. Artificial rupture of membranes-4 back was performed at 6:20 AM with thick meconium fluid at which point she was 7 cm 100% and -1 station. She made steady cervical change after this and will periodically have late decelerations which responded to position change and then the tracing will return to category 1. She was fully dilated at 10 AM and set up in lithotomy position ready to push at 10:11 AM. The barrel stave inspector Dr. Lozano was notified and was present at time of delivery: 1 amniotic fluid. DELIVERY NOTE: She was set up in lithotomy position and was pushing effectively. She was noted to be +3 station and continued pushing well. The head delivered in CHARITY position, nuchal cord x1 present. The shoulders and rest of the body followed with her next push-the posterior and delivered before the anterior shoulder.. The cord was clamped and cut and baby handed to the waiting RN and barrel stave inspector Dr. Kulkarni. The placenta delivered spontaneously intact with membranes and was discarded. The fundus was noted to be firm and well contracted. The vagina and cervix were inspected and no cervical or sulcal lacerations were noted. The perineum was intact except for second-degree perineal tear which was repaired with 3-0 Vicryl in a continuous interlocking fashion. Good hemostasis and reapproximation was obtained. Rectal exam was performed and intact mucosa was confirmed. Baby boy born at 11:45 AM on 06/13/2021 with 8/9, weighing 7 pounds 15 ounces, 3610 g, 21 inches long. Placenta was delivered spontaneously intact with membranes at 10:51 AM. Cotyledons were intact , centrally inserted umbilical cord with 3 vessels noted. Estimated blood loss 300 -mL. Complications-none, both baby and mom the were left to recover in a stable condition. HOSPITAL COURSE: She underwent an uncomplicated vaginal delivery on 06/13/2021. She did well on day 0 and was ambulating well, tolerating regular diet, voiding freely, passing flatus. She was bottlefeeding without difficulty and bonding well with her son. Pain was well-controlled with by mouth pain medication. She denied nausea, vomiting, fever, chills, shortness of breath, leg pain. She had moderate vaginal bleeding. On day # 1 she continued to do well with stable vital signs and hemoglobin at 8.9. This was a pretty significant drop from a predelivery value of 13 given very minimal EBL so hemoglobin was repeated in 12 hours and was stable at 9. This is likely hemodilution effect as I think she was hemoconcentrated at time of admission. Vital signs throughout were stable. She continued to do well on day #2 with stable vital signs. Minimal vaginal bleeding. She was discharged home on day 2 in a stable condition. Warning signs for endometritis, mastitis, DVT/PE were reviewed with her. Post delivery activity restrictions were also reviewed with her at all her questions were answered to her satisfaction. She and Dr. Childers have not discussed a plan for contraception and so she is unsure about what she wants to do. This will be discussed at her 6-week visit. EXAM AT DISCHARGE: Gen.: No acute distress Heart: S1-S2 heard, regular rate and rhythm Lungs: Clear to auscultation bilaterally Abdomen: Soft, fundus firm below umbilicus Legs: No calf tenderness, trace bilateral pitting pedal edema. CONDITION AT DISCHARGE: Stable This documentation was created by My e[employer] large animal husbandry technician software (known for inherent large animal husbandry technician error). Every effort was made to assure accuracy of large animal husbandry technician. Any obvious errors or omissions should be clarified with the author of the document. Reason for Visit Reason for Visit: Vaginal Discharge Information Peripartum Data: Delivery Method: Vaginal Physical Exam Urinary Catheter Management^: Clemons: Cath Placed During This Visit: yes, but has since been removed by the nurse Reason for Continuing Indwelling Catheter: Decision to DC Catheter Urinary Catheter Date of Insertion: 06/13/21 Urinary Catheter Time of Insertion: 03:47 Date Urinary Catheter Removed: 06/13/21 Time Urinary Catheter Discontinued: 10:10 Discharge Data Data Completed and Pending: Labs from last 24 hours 06/14/21 08:45 WBC 13.4 H RBC 3.03 L Hgb 9.0 L Hct 28.5 L MCV 94.1 MCH 29.7 MCHC 31.6 RDW 12.6 Plt Count 184 MPV 13.3 H Vitals: Last Vital Signs Temp 98.0 F 06/15/21 04:41 Pulse 77 06/15/21 04:41 Resp 15 06/15/21 04:41 BP 95/57 06/15/21 04:41 Pulse Ox 98 06/15/21 04:41 Discharge Plan Discharge Patient Disposition: Home Condition: Stable Prescriptions: New ibuprofen 800 mg tablet 800 mg PO Q8H Qty: 30 RF: 0 docusate sodium 100 mg Capsule 100 mg PO BID PRN (Reason: constipation) Qty: 30 RF: 0 Continued Gummy 400 mcg-35 mg -25 mg-5 mg tablet,chewable 2 tab PO BEDTIME RF: 0 ferrous sulfate 325 mg (65 mg iron) tablet 325 mg PO BID Qty: 60 RF: 4 Discontinued cephalexin [Keflex] 750 mg capsule 750 mg PO BID Qty: 20 RF: 0 Discharge Orders: Discharge Order (Routine); Ordered 06/15/21 Ordered By: Inez Yates Referrals: Brigida Childers MD [Family Provider] - (6-week with Dr. Childers) Discharge Diet: Regular Discharge Activity: Limit activity as instructed Patient Instructions: OB Discharge Report, OB Food/Drug Interaction Guide, OB Home Care Instructions, OB Care at Home, Opioid Safety, OB Home Care, OB Proud Parent Packet, OB Vaginal Deliveries - [facility] Activity Restrictions/Additional Instructions: Pelvic rest for 6 weeks, no heavy lifting for 6 weeks, 6-week with Dr. Childers Discharge Attestations OBSERVER HELPER Time Spent in Discharge Care*: greater than 30 min Coding Level of Care Code Acute Political Anthropologist for Tay Hugo
[2021-06-15] MEDS: prenatal vitamin Capsule 1 CAP PO (09:15)
[2021-06-15] MEDS: ibuprofen 800 mg tablet PO (09:15)
[2021-06-15] MEDS: docusate sodium 100 mg Capsule PO (09:15)
[2021-06-15 10:52] VITALS: BP 104/57; PULSE 74; TEMP 36.8; O2SAT 98
--- NOTE | 2021-06-15 13:35 | PC.SOCIAL ---
Resource options for Veena Wright : 2000 [employer] provides parenting classes. You can schedule an appointment with Ana Rosa by calling [phone]. They also have a diaper resource in case this is needed. If you are receiving WIC you can reach out to your Consumer Marketing Analyst or the Health Department to see about having contact number for a nurse that you can reach out to by phone with any questions or concerns. Met with patient in person and explained information above. Provided this nurse name and contact information as well. No questions voiced at this time.
[2021-06-15 13:59] VITALS: BP 104/57; PULSE 74; RESP 18; TEMP 36.8; O2SAT 98
--- NOTE | 2021-06-15 15:12 | ANE.PACU2 ---
Inpatient post-anesthesia follow up: Airway intact: Yes Vital signs: Temperature 98.3 F Pulse Rate 74 Respiratory Rate 18 Blood Pressure 104/57 Pulse Oximetry 98 Oxygen Delivery Me thod Room Air Oxygen Flow Rate Fraction of Inspir ed Oxygen Hydration adequate: Yes Nausea and vomiting: No Pain level: 1 Mental status: Baseline
== END 2021-06-15 13:55 | disposition home or self-care (01) | DRG 807 ==
LOC: OPOB 17:53 → OBGYN 17:53
PROVIDERS: Admitting Provider Obstetrics & Gynecology; Family Provider Obstetrics & Gynecology; Visit Provider Obstetrics & Gynecology
DX: O42.02 Full-term premature rupture of membranes, onset of labor within 24 hours of rupture (principal); Z37.0 Single live birth; Z3A.39 39 weeks gestation of pregnancy; O76 Abnormality in fetal heart rate and rhythm complicating labor and delivery; O77.0 Labor and delivery complicated by meconium in amniotic fluid; O99.824 Streptococcus B carrier state complicating childbirth; O70.1 Second degree perineal laceration during delivery; O69.81X0 Labor and delivery complicated by cord around neck, without compression, not applicable or unspecified
CPT/HCPCS: 36415; 51702; 59025; 59409; 83986; 84112; 85025; 85027; 99211; J0690; J2405; J2765; J2795; J3010

== ENCOUNTER 2021-06-16 07:26 | Emergency (ER) | payer MEDICAID, SELFPAY ==
[2021-06-16 07:38] VITALS: BP 132/70; PULSE 87; RESP 18; TEMP 36.4; O2SAT 99; BMI 32.7
--- NOTE | 2021-06-16 07:58 | W.ED.FEMALGU ---
HPI - Female Genitourinary General: Chief complaint: Vaginal Bleeding Stated complaint: VAGINAL DELIVERY 06.13.21:EXCESSIVE BLEEDING;CRAMP Time Seen by Provider: 06/16/21 07:28 History of Present Illness: HPI Narrative: 21 yo female presents with vaginal bleeding that increased this AM. Pt delivered 06/13, discharged from [facility] with mild anemia on 06/15. Pt had vaginal delivery by Dr. Shields. Patient was mildly anemic time of discharge with a hemoglobin of 9. Had a madeleine of 8.9 the day prior. MD elicited complaint: vaginal bleeding Pertinent past history: other (Recent delivery.) Onset (ago): hour(s) Location of symptoms: vaginal Quality of pain: cramping Vaginal bleeding: moderate Exacerbating factors: none Relieving factors: none Associated symptoms: Reports vaginal bleeding; Deny abdominal pain, short of breath, fevers/chills, headache(s), nausea, rash, seizures, syncope, vaginal discharge or weakness Treatment prior to arrival: none Patient : No Date of Last Menstrual Period: 09/19/20 Review of Systems Const: Denies: fever(s), chills, body aches, change in appetite, fatigue or malaise ENMT: Denies: throat pain, ear or mastoid pain, nasal discharge or nasal congestion Card: Denies: syncope Resp: Denies: dyspnea, productive cough or non-productive cough GI: Denies: abdominal pain or nausea : Denies: vaginal discharge Skin/Breast: Denies: rash or pruritus Neuro: Denies: headache(s) [facility] ED PFSH: Medical History Depression No pertinent past medical history neghx: htn,dm,thyroid,dvt/pe,herpes ---denies partner with herpes PCP: None Surgical History No history of previous surgery Family History Grandfather Diabetes paternal Thyroid disease Maternal Grandmother Colon cancer maternal---dx age 50's Thyroid disease Maternal Denies family history of Ovarian cancer Hypercholesteremia Breast cancer Hypertension Uterine cancer Stroke Social History (Reviewed 06/16/21 @ 08:03 by LON Sim Smoking and tobacco status: never smoked Female Reproductive History: Date of last menstrual period: 09/19/20 Physical Exam Const: COMMON NORMALS: no acute distress GENERAL APPEARANCE: cooperative and comfortable ORIENTATION/CONSCIOUSNESS: Yes awake, Yes oriented to person, Yes oriented to place and Yes oriented to time HENMT: COMMON NORMALS: normocephalic, atraumatic and hearing grossly normal bilaterally HEAD & SCALP: normocephalic and atraumatic Neck/C-Spine: COMMON NORMALS: no JVD Resp: COMMON NORMALS: normal respiratory effort, No retractions, No use of accessory muscles and clear to auscultation bilaterally AUSCULTATION: clear to auscultation bilaterally Cardio: COMMON NORMALS: no JVD, regular rate, regular rhythm and No murmurs present (Cardio) RATE: regular rate RHYTHM: regular rhythm GI: COMMON NORMALS: Soft to palpation and No hepatosplenomegaly present AUSCULTATION: Yes normoactive bowel sounds PALPATION: Yes Soft to palpation, No Tenderness to palpation present (GI), No Guarding due to palpation present (GI) and Yes No hepatosplenomegaly present : SPECULUM EXAM - VAGINA: Yes vaginal bleeding OB/EXTERNAL & SPECULUM: vaginal bleeding OTHER: Perineal repair is intact without any significant abnormality no evidence of dehiscence. Extremity: COMMON NORMALS: normal to inspection, capillary refill normal, no clubbing, cyanosis or edema, no calf tenderness and no pedal edema Neuro: SENSORIUM/ORIENTATION: Yes oriented to person, Yes oriented to place and Yes oriented to time Skin: COMMON NORMALS: no rashes or lesions noted GENERAL SKIN EXAM: no rashes or lesions noted Course Vital Signs: Vital signs: Vital Signs Temperature 97.5 F L 06/16/21 07:38 Pulse Rate 90 06/16/21 08:08 Respiratory Rate 18 06/16/21 07:38 Blood Pressure 128/80 06/16/21 08:08 Pulse Oximetry 98 06/16/21 08:08 MDM - Female MDM Narrative: Medical decision making narrative: Hemoglobin slightly increased from when she was discharged yesterday. Discussed the patient she will continue to have intermittent bleeding at times it may even seem heavy bleeding she is having now is appropriate. Would not change anything at this point continue routine cares and follow-up with CHARGING OPERATOR as scheduled. Lab Data: Labs: Lab Results 06/16/21 07:59 WBC 11.2 10^3/uL 10^3 /uL (4.5-13.0) RBC 3.19 10^6/uL L 10 ^6/uL (4.1-5.3) Hgb 9.5 g/dL L g/dL (11.5-15.3) Hct 30.2 % L % (37.0-47.0) MCV 94.7 fl fl (81-99) MCH 29.8 pg pg (28.0-34.0) MCHC 31.5 g/dL g/dL (30.0-36.0) RDW 12.5 % % (12.1-15.1) Plt Count 235 10^3/cmm 10^3 /cmm (130-400) MPV 12.4 fL H fL (7.4-10.4) Neut % (Auto) 71.6 % % Lymph % (Auto) 21.1 % % Cottle % (Auto) 4.8 % % Eos % (Auto) 1.1 % % Baso % (Auto) 0.4 % % Neut # (Auto) 8.05 10^3/uL H 10 ^3/uL (1.8-8.0) Lymph # (Auto) 2.4 10^3/uL 10^3/ uL (1.5-6.5) Cottle # (Auto) 0.5 10^3/uL 10^3/ uL (0.2-0.9) Eos # (Auto) 0.1 10^3/uL 10^3/ uL (0.0-0.8) Baso # (Auto) 0.0 10^3/uL 10^3/ uL (0.0-0.1) Nucleated RBC % (a uto) 0 % % Nucleated RBCs # 0.0 /100WBC /100W BC Discharge Plan Discharge Patient Disposition: Home Clinical Impression: bleeding, Anemia Condition: Stable Prescriptions: No Action Gummy 400 mcg-35 mg -25 mg-5 mg tablet,chewable 2 tab PO BEDTIME RF: 0 ferrous sulfate 325 mg (65 mg iron) tablet 325 mg PO BID Qty: 60 RF: 4 ibuprofen 800 mg tablet 800 mg PO Q8H Qty: 30 RF: 0 docusate sodium 100 mg Capsule 100 mg PO BID PRN (Reason: constipation) Qty: 30 RF: 0 Discharge Orders: Discharge ED (Routine); Ordered 06/16/21 Ordered By: Abad Friedman Referrals: Sommer Saucedo APRN [Primary Care Provider] - Discharge Diet: Usual diet Patient Instructions: Opioid Safety Coding Level of Care Code ED Clinic Scheduler for Chg Fwd Exam Comprehensive
[2021-06-16 08:08] VITALS: BP 128/80; PULSE 90; O2SAT 98
[2021-06-16 08:32] LABS: Basophils % 0.4 %; Eosinophils # 0.1 10^3/uL (0.0-0.8); Eosinophils % 1.1 %; Hematocrit 30.2 % (37.0-47.0); Hemoglobin 9.5 g/dL (11.5-15.3); Lymphocytes # 2.4 10^3/uL (1.5-6.5); Lymphocytes % 21.1 %; Mean Corpuscular HGB Conc 31.5 g/dL (30.0-36.0); Mean Corpuscular Hemoglobin 29.8 pg (28.0-34.0); Mean Corpuscular Volume 94.7 fl (81-99); Mean Platelet Volume 12.4 fL (7.4-10.4); Monocytes # 0.5 10^3/uL (0.2-0.9); Monocytes % 4.8 %; Neutrophils # 8.05 10^3/uL (1.8-8.0); Neutrophils % 71.6 %; Nucleated Red Blood Cells % 0 %; Platelet Count 235 10^3/cmm (130-400); Red Blood Count 3.19 10^6/uL (4.1-5.3); Red Cell Distribution Width 12.5 % (12.1-15.1); White Blood Count 11.2 10^3/uL (4.5-13.0)
== END 2021-06-16 09:10 | disposition home or self-care (01) ==
PROVIDERS: Absent Provider Obstetrics & Gynecology; Emergency Provider Family Medicine; PCP Nurse Practitioner Family
DX: O72.1 Other immediate postpartum hemorrhage (principal); O90.81 Anemia of the puerperium
CPT/HCPCS: 85025; 99281

== ENCOUNTER → 2021-07-24 11:48 | Outpatient (BNVA) | payer MEDICAID, SELFPAY | PROVIDERS: PCP Nurse Practitioner Family; Visit Provider Obstetrics & Gynecology | DX: R30.0 Dysuria (principal) | CPT/HCPCS: 81000 ==

== ENCOUNTER 2021-07-25 17:23 | Emergency (ER) | payer MEDICAID, SELFPAY ==
[2021-07-25 18:00] VITALS: BP 106/69; PULSE 80; RESP 16; TEMP 36.7; O2SAT 97; BMI 28.3
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
[2021-07-25 19:01] LABS: Bilirubin Urine 1+ (Negative); Blood Urine 2+ (Negative); Glucose Urine UA Norm (Normal); Ketones Urine Negative (Negative); Nitrate Urine Negative (Negative); Protein Urine Neg (Negative); Specific Gravity, Urine 1.025 (1.005-1.030); Urine Appearance Cloudy (CLEAR); Urine Color Yellow (Yellow); pH Urine 5 (5-7)
[2021-07-25 19:02] LABS: Add Urine Microscopic? YES; Leukocyte Esterase Urine 2+ (Negative); Urobilinogen Urine Norm (Negative)
[2021-07-25 19:14] LABS: Bacteria Urine 2+ /hpf; Mucus Urine 2+ /hpf; Squamous Epithelial Cell Urine 25-40 /hpf (0-5); WBC Urine 25-40 /hpf (0-5)
[2021-07-25 19:15] LABS: Add Urine Culture? No
[2021-07-25 19:51] LABS: Basophils # 0.1 10^3/uL (0.0-0.1); Basophils % 0.6 %; Eosinophils # 0.1 10^3/uL (0.0-0.8); Eosinophils % 1.4 %; Hematocrit 35.2 % (37.0-47.0); Hemoglobin 11.3 g/dL (11.5-15.3); Lymphocytes # 3.1 10^3/uL (1.5-6.5); Lymphocytes % 35.2 %; Mean Corpuscular HGB Conc 32.1 g/dL (30.0-36.0); Mean Corpuscular Hemoglobin 29.4 pg (28.0-34.0); Mean Corpuscular Volume 91.7 fl (81-99); Mean Platelet Volume 10.9 fL (7.4-10.4); Monocytes # 0.8 10^3/uL (0.2-0.9); Monocytes % 8.9 %; Neutrophils # 4.69 10^3/uL (1.8-8.0); Neutrophils % 53.8 %; Nucleated Red Blood Cells % 0 %; Platelet Count 266 10^3/cmm (130-400); Red Blood Count 3.84 10^6/uL (4.1-5.3); Red Cell Distribution Width 12.6 % (12.1-15.1); White Blood Count 8.7 10^3/uL (4.5-13.0)
[2021-07-25 20:23] VITALS: BP 122/78; PULSE 78; RESP 18; O2SAT 99
== END 2021-07-25 20:20 | disposition home or self-care (01) ==
PROVIDERS: Emergency Provider Nurse Practitioner Family; PCP Nurse Practitioner Family
DX: S10.93XA Contusion of unspecified part of neck, initial encounter (principal); O72.1 Other immediate postpartum hemorrhage; Y04.8XXA Assault by other bodily force, initial encounter
CPT/HCPCS: 81001; 85025; 99281

== ENCOUNTER 2021-07-27 14:08 | Outpatient (CLI) | payer MEDICAID, SELFPAY ==
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
== END 2021-07-27 14:09 | disposition home or self-care (01) ==
LOC: RAD 14:11
PROVIDERS: PCP Nurse Practitioner Family; Visit Provider Nurse Practitioner Family
DX: M54.2 Cervicalgia (principal); Y09 Assault by unspecified means
CPT/HCPCS: 72040; 81003; 87086

== ENCOUNTER → 2022-01-19 11:30 | Outpatient (BNVA) | payer MEDICAID, OTHER, SELFPAY | PROVIDERS: PCP Nurse Practitioner Family; Visit Provider Nurse Practitioner Family | DX: R11.2 Nausea with vomiting, unspecified (principal); B86 Scabies | CPT/HCPCS: 81025 ==

== ENCOUNTER → 2022-03-03 16:00 | Outpatient (BNVA) | payer OTHER, SELFPAY | PROVIDERS: PCP Nurse Practitioner Family; Visit Provider Social Worker | DX: F33.2 Major depressive disorder, recurrent severe without psychotic features (principal); F41.1 Generalized anxiety disorder; F43.10 Post-traumatic stress disorder, unspecified | CPT/HCPCS: 90834 ==

== ENCOUNTER → 2022-03-08 08:04 | Outpatient (BNVA) | payer OTHER, SELFPAY | PROVIDERS: PCP Nurse Practitioner Family; Visit Provider Social Worker | DX: F33.2 Major depressive disorder, recurrent severe without psychotic features (principal); F41.1 Generalized anxiety disorder; F43.10 Post-traumatic stress disorder, unspecified | CPT/HCPCS: 90834 ==

== ENCOUNTER → 2022-03-19 09:41 | Outpatient (BNVA) | payer MEDICAID, SELFPAY | PROVIDERS: PCP Family Medicine Adult Medicine; Visit Provider Family Medicine Adult Medicine | DX: F32.9 Major depressive disorder, single episode, unspecified (principal); R53.83 Other fatigue; Z13.6 Encounter for screening for cardiovascular disorders | CPT/HCPCS: 80053; 84443; 85025 ==

== ENCOUNTER 2022-04-13 10:07 | Outpatient (CLI) | payer MEDICAID, SELFPAY ==
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
== END 2022-04-13 10:08 | disposition home or self-care (01) ==
PROVIDERS: PCP Family Medicine Adult Medicine; Visit Provider Family Medicine
DX: M79.601 Pain in right arm (principal); W19.XXXA Unspecified fall, initial encounter
CPT/HCPCS: 73090

== ENCOUNTER → 2022-06-02 11:16 | Outpatient (BNVA) | payer MEDICAID, SELFPAY | PROVIDERS: PCP Family Medicine Adult Medicine; Visit Provider Obstetrics & Gynecology | DX: Z01.419 Encounter for gynecological examination (general) (routine) without abnormal findings (principal); Z30.9 Encounter for contraceptive management, unspecified | CPT/HCPCS: 88175 ==

== ENCOUNTER → 2022-08-27 11:56 | Outpatient (BNVA) | payer OTHER, SELFPAY | PROVIDERS: PCP Family Medicine Adult Medicine; Visit Provider Family Medicine Adult Medicine | DX: O26.90 Pregnancy related conditions, unspecified, unspecified trimester (principal); Z71.1 Person with feared health complaint in whom no diagnosis is made | CPT/HCPCS: 81025 ==

== ENCOUNTER → 2022-10-08 16:00 | Outpatient (BNVA) | payer MEDICAID, SELFPAY | PROVIDERS: PCP Family Medicine Adult Medicine; Visit Provider Obstetrics & Gynecology | DX: Z30.9 Encounter for contraceptive management, unspecified (principal) | CPT/HCPCS: 87070; 87205 ==

== ENCOUNTER → 2023-03-03 15:01 | Outpatient (BNVA) | payer MEDICAID, SELFPAY | PROVIDERS: PCP Family Medicine Adult Medicine; Visit Provider Family Medicine Adult Medicine | DX: S99.921A Unspecified injury of right foot, initial encounter (principal); X58.XXXA Exposure to other specified factors, initial encounter | CPT/HCPCS: 73630 ==

== ENCOUNTER → 2023-03-10 10:22 | Outpatient (BNVA) | payer OTHER, SELFPAY | PROVIDERS: PCP Family Medicine Adult Medicine; Visit Provider Psychiatry & Neurology Psychiatry | DX: F41.1 Generalized anxiety disorder (principal) | CPT/HCPCS: 80061; 83036 ==

== ENCOUNTER → 2023-08-11 09:52 | Outpatient (BNVA) | payer OTHER, SELFPAY ==
[2023-03-24 16:31] VITALS: BP 123/67; BMI 30.3
== END ==
PROVIDERS: PCP Family Medicine Adult Medicine; Visit Provider Nurse Practitioner Psychiatric/Mental Health
DX: Z03.89 Encounter for observation for other suspected diseases and conditions ruled out (principal)
CPT/HCPCS: 80053; 81025

== ENCOUNTER → 2023-10-21 09:01 | Outpatient (BNVA) | payer MEDICAID, SELFPAY ==
[2023-03-24 16:31] VITALS: BP 123/67; BMI 30.3
== END ==
PROVIDERS: PCP Family Medicine Adult Medicine; Visit Provider Family Medicine Adult Medicine
DX: S67.194A Crushing injury of right ring finger, initial encounter (principal); X58.XXXA Exposure to other specified factors, initial encounter
CPT/HCPCS: 73140

== ENCOUNTER → 2024-01-20 17:59 | Outpatient (BNVA) | payer MEDICAID, SELFPAY ==
[2023-03-24 16:31] VITALS: BP 123/67; BMI 30.3
== END ==
PROVIDERS: PCP Family Medicine Adult Medicine; Visit Provider Emergency Medicine
DX: S69.92XA Unspecified injury of left wrist, hand and finger(s), initial encounter (principal); X58.XXXA Exposure to other specified factors, initial encounter
CPT/HCPCS: 73130

== ENCOUNTER → 2024-03-13 14:16 | Outpatient (BNVA) | payer MEDICAID, SELFPAY ==
[2023-03-24 16:31] VITALS: BP 123/67; BMI 30.3
== END ==
PROVIDERS: PCP Family Medicine Adult Medicine; Visit Provider Family Medicine Adult Medicine
DX: M19.90 Unspecified osteoarthritis, unspecified site (principal); M25.541 Pain in joints of right hand; M25.542 Pain in joints of left hand; G47.19 Other hypersomnia; L60.9 Nail disorder, unspecified
CPT/HCPCS: 80053; 84443; 85025; 85651; 86038; 86140; 86200; 86431; 86618; 86666; 86757

== ENCOUNTER → 2024-08-22 11:48 | Outpatient (BNVA) | payer MEDICAID, SELFPAY ==
[2023-03-24 16:31] VITALS: BP 123/67; BMI 30.3
== END ==
PROVIDERS: Visit Provider Nurse Practitioner Women's Health
DX: Z34.91 Encounter for supervision of normal pregnancy, unspecified, first trimester (principal); Z3A.01 Less than 8 weeks gestation of pregnancy
CPT/HCPCS: 76801; 81025; 84702; 86850; 86900

== ENCOUNTER → 2024-08-27 11:20 | Outpatient (BNVA) | payer MEDICAID, SELFPAY ==
[2023-03-24 16:31] VITALS: BP 123/67; BMI 30.3
== END ==
PROVIDERS: Visit Provider Nurse Practitioner Women's Health
DX: R30.0 Dysuria (principal)
CPT/HCPCS: 81000; 87086

== ENCOUNTER → 2024-09-04 10:52 | Outpatient (BNVA) | payer MEDICAID, SELFPAY ==
[2023-03-24 16:31] VITALS: BP 123/67; BMI 30.3
== END ==
PROVIDERS: Visit Provider Nurse Practitioner Women's Health
DX: Z34.90 Encounter for supervision of normal pregnancy, unspecified, unspecified trimester (principal); B37.31 Acute candidiasis of vulva and vagina
CPT/HCPCS: 80307; 81000; 84443; 85025; 86592; 86762; 86803; 86850; 86900; 87086; 87340; 87491; 87591; 87661; 87806

== ENCOUNTER → 2024-09-10 10:38 | Outpatient (BNVA) | payer MEDICAID, SELFPAY ==
[2023-03-24 16:31] VITALS: BP 123/67; BMI 30.3
== END ==
PROVIDERS: Visit Provider Obstetrics & Gynecology
DX: Z34.90 Encounter for supervision of normal pregnancy, unspecified, unspecified trimester (principal); Z3A.10 10 weeks gestation of pregnancy
CPT/HCPCS: 84315; 88175

== ENCOUNTER 2024-12-08 16:08 | Outpatient (CLI) | payer OTHER, SELFPAY ==
[2023-03-24 16:31] VITALS: BP 123/67; BMI 30.3
[2024-12-08 16:18] VITALS: BMI 32.3
[2024-12-08 16:19] VITALS: BP 109/58; PULSE 71
[2024-12-08 16:33] VITALS: BP 84/49; PULSE 72
== END 2024-12-08 16:44 | disposition home or self-care (01) ==
LOC: OPOB 16:09 → OBGYN 16:09
PROVIDERS: Visit Provider Family Medicine
DX: O36.8190 Decreased fetal movements, unspecified trimester, not applicable or unspecified (principal); Z3A.00 Weeks of gestation of pregnancy not specified
CPT/HCPCS: 99211

== ENCOUNTER → 2024-12-29 14:19 | Outpatient (BNVA) | payer MEDICAID, SELFPAY ==
[2023-03-24 16:31] VITALS: BP 123/67; BMI 30.3
== END ==
PROVIDERS: Visit Provider Nurse Practitioner Family
DX: M25.532 Pain in left wrist (principal); M79.632 Pain in left forearm
CPT/HCPCS: 73090; 73110

== ENCOUNTER 2025-01-24 11:37 | Outpatient (CLI) | payer MEDICAID, SELFPAY ==
[2023-03-24 16:31] VITALS: BP 123/67; BMI 30.3
[2025-01-24 11:40] VITALS: BMI 32.2
[2025-01-24 11:52] VITALS: TEMP 35.6
[2025-01-24 11:53] VITALS: BP 108/62; PULSE 71
[2025-01-24 12:13] VITALS: BP 91/45; PULSE 71
[2025-01-24 12:44] LABS: Nitrazine Paper, PH Negative
== END 2025-01-24 12:20 | disposition home or self-care (01) ==
LOC: OPOB 11:43 → OBGYN 11:44
PROVIDERS: Visit Provider Family Medicine
DX: O26.899 Other specified pregnancy related conditions, unspecified trimester (principal); Z3A.00 Weeks of gestation of pregnancy not specified; N89.8 Other specified noninflammatory disorders of vagina; W19.XXXA Unspecified fall, initial encounter
CPT/HCPCS: 59025; 83986; 99211

== ENCOUNTER → 2025-02-07 10:39 | Outpatient (BNVA) | payer OTHER, SELFPAY ==
[2023-03-24 16:31] VITALS: BP 123/67; BMI 30.3
== END ==
PROVIDERS: Visit Provider Nurse Practitioner Psychiatric/Mental Health
DX: F41.1 Generalized anxiety disorder (principal); F43.10 Post-traumatic stress disorder, unspecified
CPT/HCPCS: 80061; 83036

== ENCOUNTER 2025-03-08 22:50 | Outpatient (CLI) | payer MEDICAID, SELFPAY ==
[2025-02-11 13:08] VITALS: BP 128/76; BMI 32.7
[2025-03-08 22:50] VITALS: BMI 34.3
[2025-03-08 23:06] VITALS: BP 130/76; PULSE 64
[2025-03-08 23:21] VITALS: BP 117/70; PULSE 56
[2025-03-08 23:29] LABS: Nitrazine Paper, PH Inconclusive
[2025-03-08 23:36] VITALS: BP 118/72; PULSE 59
[2025-03-08 23:42] LABS: Actim Prom Negative
[2025-03-08 23:49] VITALS: BP 118/72; PULSE 59; RESP 16; TEMP 36.6; O2SAT 99
== END 2025-03-08 23:53 | disposition home or self-care (01) ==
LOC: OPOB 22:53 → OBGYN 22:53
PROVIDERS: Visit Provider Family Medicine
DX: O26.899 Other specified pregnancy related conditions, unspecified trimester (principal); Z3A.00 Weeks of gestation of pregnancy not specified; R10.9 Unspecified abdominal pain; N89.8 Other specified noninflammatory disorders of vagina
CPT/HCPCS: 59025; 83986; 84112; 99211

== ENCOUNTER 2025-03-28 12:47 | Inpatient (IN) | payer MEDICAID, SELFPAY ==
[2025-02-11 13:08] VITALS: BP 128/76; BMI 32.7
[2025-03-28] VITALS (27 sets, daily range): BP systolic 100–140; BP diastolic 56–82; PULSE 48–106; RESP 16–17; O2SAT 92–100; BMI 33.1
[2025-03-28 12:03] LABS: Nitrazine Paper, PH Inconclusive
[2025-03-28] MEDS: ceFAZolin 2,000 mg SDV 2000 MG IVP (13:16)
[2025-03-28 13:29] LABS: Hematocrit 35.7 % (36-47); Hemoglobin 11.70 g/dL (11.27-16.99); Mean Corpuscular HGB Conc 32.8 g/dL (30-55); Mean Corpuscular Hemoglobin 29.4 pg (27-33); Mean Corpuscular Volume 89.7 fl (85-98); Nucleated Red Blood Cells % 0 %; Platelet Count 265 10^3/cmm (157-399); Red Blood Count 3.98 10^6/uL (3.85-5.65); White Blood Count 8.65 10^3/uL (3.29-11.43)
--- NOTE | 2025-03-28 14:35 | ANES.PREANE2 ---
Pre-Anesthetic Assessment Height/Weight: Height 5 ft 8 in Weight 218 lb Pulse BP Pulse Ox O2 Del Method 59 L 111/60 100 Room Air 03/28/25 14:32 03/28/25 14:32 03/28/25 14:09 03/28/25 12:30 Preop Diagnosis: IUP Was Beta Ina taken within 24 hours: N/A Was Clonidine taken within 24 hours: N/A Social No alcohol and No tobacco Exam alert and oriented x 3 Airway Submandibular: within normal limits Cervical ROM: within normal limits Mallampati: Class III Comments: Comments: Poor dentition Anesthetic Plan ASA status: 2 Anesthesia: Regional (specify below) Other: G2, P1 here in active labor requesting epidural No prior issues with epidural placement in the past Patient denies any issues during Only takes vitamin Labs reviewed and acceptable for procedure Plan for routine epidural placement Medications/Allergies Home Medications ?Medication ?Instructions ?Recorded ?Confirmed ?Last Taken ?Type vitamin#30 30 mg iron-10 1 cap PO DAILY 02/07/25 03/19/25 03/08/25 History mg iron-folic acid 1 mg-omg3 capsule Allergies Allergy/AdvReac Type Severity Reaction Status Date / Time latex Allergy Mild ALGY-Rash Verified 03/19/25 08:58 Penicillins Allergy Mild ALGY-Rash Verified 03/19/25 08:58 sertraline (From Zoloft) Allergy HEADACHE, Verified 03/19/25 08:58 RASH Current Medications Generic Name Dose Route Start Last Admin Trade Name Freq PRN Reason Stop Dose Admin Sodium Chloride 1,000 mls @ 999 mls/hr 03/28/25 12:53 03/28/25 13:15 Sodium Chloride 0.9% IV 999 mls/hr .Q1H1M PRN Administration Per L&D Rescitation Protocol [facility] Anesthesia Medical History MDD (major depressive disorder), recurrent, in partial remission Skin infection Skin inflammation Inflammatory arthritis Excessive daytime sleepiness Irregular finger nails Bilateral finger arthralgia Difficulty controlling anger Major depressive disorder, recurrent severe without psychotic features Weight gain due to medication Generalized anxiety disorder PTSD (post-traumatic stress disorder) Psychiatric care Surgical History S/P matrixectomy of toe No history of previous surgery Family History Grandfather Diabetes paternal Thyroid disease Maternal Heart disease High cholesterol Hypertension Stroke Grandmother Colon cancer maternal---dx age 50's Thyroid disease Maternal Congenital heart disease Heart disease High cholesterol Hypertension Stroke Diabetes Father Heart disease High cholesterol Hypertension Stroke Diabetes Mother Heart disease High cholesterol Hypertension Stroke Diabetes Other Sudden cardiac Denies family history of Ovarian cancer Hypercholesteremia Breast cancer Uterine cancer Social History (Updated 02/07/25 @ 11:50 by Iliana Dawson RN) Smoking and tobacco/nicotine status: never used tobacco/nicotine Second hand smoke exposure: No Alcohol intake: never Substance/Drug Use: never Adopted: No Caregiver/support person: No Lives independently: Yes Household members: spouse and children Housing: Other Details: [place] Marital status: Number of children: 1 Highest education level completed: Some College, No Degree service: No 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 Current occupational exposures/hazards: No Pets and animals: Yes Pets & animals: dog(s) Pets & animal details: 4 dogs 2 inside and 2 outside Leisure activites: hunting, fishing and other Leisure activities details: play with kid Sexually active: Yes Do you think of yourself as: Straight/Heterosexual Current gender identity: Female Ayla/Confucianism: [employer] Special ayla needs: No Agree to transfusion: Yes Female Reproductive History : 2 Para: 1 Spontaneous abortions: No Data Anesthesia 03/28/25 13:00 Short CBC 03/28/25 Range/Units 13:00 WBC 8.65 (3.29-11.43) 10^3/uL Hgb 11.70 (11.27-16.99) g/dL Hct 35.7 L (36-47) % MCV 89.7 (85-98) fl Plt Count 265 (157-399) 10^3/cmm Neut % (Auto) 64.7 % Neut # (Auto) 5.59 (1.8-7.7) 10^3/uL Blood Bank 03/28/25 13:00 Blood Type O Positive Rho(D) Type Rh positive Antibody Screen Negative
--- NOTE | 2025-03-28 14:36 | ANES.PROC ---
Anesthesia Procedures Procedure/Date: 03/28/25 Epidural: Time Out Performed: Yes Consents Signed: Procedure Consent Consent: requested by attending/covering physician and from patient Lumbar Level: L3-L4 Epidural position: sitting Additional Comments: CSE performed. Back was sterilely prepped with ChloraPrep. 1% lidocaine was used to numb the skin an 18-gauge epidural needle was then introduced to 7 cm until [id number] was achieved. A 27-gauge spinal needle was then introduced into the intrathecal space. 1 cc of 0.25% bupivacaine was then injected into the intrathecal space. Spinal needle was removed and epidural catheter was threaded to 15 cm to the skin. Sterile dressing was applied. Patient had extreme amount of difficulty sitting still during procedure, however epidural went well. 10 mL of 2% lidocaine was injected in the epidural catheter as patient was laid back due to needing to push for delivery
--- NOTE | 2025-03-28 15:05 | PM.OBGYHP ---
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 Patient was eventually dilated to 4 cm and after short period had made some small amount of cervical change. Patient had a fairly unremarkable . The patient did have a fall early on with some mild vaginal bleeding and some left sided abdominal pain but this is not causing the significant complications during her .. Her lab work was unremarkable except that she was GBS positive. Present Details : 2 Para: 1 Labs Rubella: Immune RPR: Negative GBS: Positive Review of Systems Const: Denies: fever(s), chills or body aches Eyes: Denies: change in vision ENMT: Denies: throat pain Card: Denies: chest pain Resp: Denies: dyspnea GI: Denies: nausea : Denies: flank pain or dribbling Musc: Denies: neck pain or back pain Skin/Breast: Reports: rash and skin tenderness Neuro: Denies: headache(s) Pramod/Lymph: Denies: easy bruising Medications/Allergies Home Medications ?Medication ?Instructions ?Recorded ?Confirmed ?Last Taken ?Type vitamin#30 30 mg iron-10 1 cap PO DAILY 02/07/25 03/19/25 03/08/25 History mg iron-folic acid 1 mg-omg3 capsule Allergies Allergy/AdvReac Type Severity Reaction Status Date / Time latex Allergy Mild ALGY-Rash Verified 03/19/25 08:58 Penicillins Allergy Mild ALGY-Rash Verified 03/19/25 08:58 sertraline (From Zoloft) Allergy HEADACHE, Verified 03/19/25 08:58 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: Medical History (Updated 03/28/25 @ 15:12 by Nolan Maciel MD) MDD (major depressive disorder), recurrent, in partial remission Skin infection Skin inflammation Inflammatory arthritis Excessive daytime sleepiness Irregular finger nails Bilateral finger arthralgia Difficulty controlling anger Major depressive disorder, recurrent severe without psychotic features Weight gain due to medication Generalized anxiety disorder PTSD (post-traumatic stress disorder) Psychiatric care Surgical History S/P matrixectomy of toe No history of previous surgery Family History Grandfather Diabetes paternal Thyroid disease Maternal Heart disease High cholesterol Hypertension Stroke Grandmother Colon cancer maternal---dx age 50's Thyroid disease Maternal Congenital heart disease Heart disease High cholesterol Hypertension Stroke Diabetes Father Heart disease High cholesterol Hypertension Stroke Diabetes Mother Heart disease High cholesterol Hypertension Stroke Diabetes Other Sudden cardiac Denies family history of Ovarian cancer Hypercholesteremia Breast cancer Uterine cancer Social History (Updated 02/07/25 @ 11:50 by Iliana Dawson RN) Smoking and tobacco/nicotine status: never used tobacco/nicotine Second hand smoke exposure: No Alcohol intake: never Substance/Drug Use: never Adopted: No Caregiver/support person: No Lives independently: Yes Household members: spouse and children Housing: Other Details: [place] Marital status: Number of children: 1 Highest education level completed: Some College, No Degree service: No 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 Current occupational exposures/hazards: No Pets and animals: Yes Pets & animals: dog(s) Pets & animal details: 4 dogs 2 inside and 2 outside Leisure activites: hunting, fishing and other Leisure activities details: play with kid Sexually active: Yes Do you think of yourself as: Straight/Heterosexual Current gender identity: Female Ayla/Restorationism: [employer] Special ayla needs: No Agree to transfusion: Yes Other Female Reproductive History: Hx Age of Menarche: 14 Personal Safety: Do you feel safe at home: No (see notes) History History History 2 Term 1 0 Miscarriages/Ectopic 0 Living Children 1 Vitals/I&O/Wt Last Vital Signs Pulse 58 L 03/28/25 15:02 BP 116/77 03/28/25 15:02 Pulse Ox 100 03/28/25 14:09 O2 Del Method Room Air 03/28/25 12:30 Weight last 48 hrs Weight 98.883 kg Physical Exam Const: COMMON NORMALS: no acute distress, patient oriented x3 and alert Resp: COMMON NORMALS: normal respiratory effort and No retractions Cardio: COMMON NORMALS: no JVD, regular rate and regular rhythm GI: OTHER: Gravid uterus Extremity: COMMON NORMALS: no clubbing, cyanosis or edema Neuro: COMMON NORMALS: moves all extremities, no focal motor deficits and no sensory deficits noted Psych: APPEARANCE: Yes grossly normal Skin: COMMON NORMALS: no rashes or lesions noted Data 03/28/25 13:00 Results Labs OB ([facility]): Blood Type O Positive Today Antibody Screen Negative Today Hct, (36-47) 35.7 % L Today Hgb, (11.27-16.99) 11.70 g/dL Today Rho(D) Type Rh positive Today Plt Count, (157-399) 265 10^3/cmm Today Hep Bs Antigen, (Nonreactive) Non-reactive 09/04/24 Hepatitis C Antibody, (Nonreactive) Non-reactive 09/04/24 Rubella IgG Antibody, (0.0-10.0) 120.3 IU/mL H 09/04/24 RPR, (Nonreactive) Nonreactive 09/04/24 HIV 1&2 Ab & HIV 1 Ag, (Non-Reactiv) Non-reactive 09/04/24 TSH, (0.27-4.20) 2.13 uIU/mL 09/04/24 Hemoglobin A1c, (4.0-6.0) 5.1 % 02/07/25 Ser , Semi-Qnt 29831.00 mIU/mL 08/22/24 HCG, Qual, (Negative) Positive H 08/22/24 Urine Opiates Screen, (Negative) Negative ng/mL 09/04/24 Ur Barbiturates Screen, (Negative) Negative ng/mL 09/04/24 Ur Phencyclidine Scrn, (Negative) Negative ng/mL 09/04/24 Ur Amphetamines Screen, (Negative) Negative ng/mL 09/04/24 U Benzodiazepines Scrn, (Negative) Negative ng/mL 09/04/24 Urine Cocaine Screen, (Negative) Negative ng/mL 09/04/24 U Marijuana (THC) Screen, (Negative) Negative ng/mL 09/04/24 Micro Urine Specimen 09/04/24 Pap Smear Interpret See note 09/10/24 A&P Assessment and plan 1. Term : Proceed with routine labor management and care. PDMP PDMP Reviewed: Not Reviewed Attestations Medical Necessity Statement*: Patient admitted for labor. Do not anticipate more than a 1 midnight stay. Coding Level of Care Code Acute Code for Chg Fwd Diagnoses Term Z34.90
--- NOTE | 2025-03-28 15:13 | PM.DELIVERY ---
Delivery Note: Date of delivery: March 28, 2025 Pre-delivery diagnoses: Term intrauterine Post-delivery diagnoses: Same, viable female Procedure: Spontaneous vaginal delivery Op report anesthesia: Epidural and Spinal Estimated blood loss (mL): 200 Pre-Delivery Course: This is a 24-year-old -0-0-2 that presented at 38 weeks 4 days with contractions. Patient had progressed quickly and appropriately to completion. Delivery: Once patient was completely dilated, she was placed into the normal lithotomy position. Patient started pushing with contractions and after 2 sets of contractions the patient delivered the infant's head without difficulty. Infant's shoulder and body was delivered without difficulty and was placed onto mother's abdomen. After delay the cord was clamped and cut. Cord blood was obtained. Placenta was delivered soon after. Review of the perineum showed superficial tear of the perineum that did not require repair. At the end of the procedure the bleeding was controlled and the uterus was firm. Post-Delivery Status: Stable History History History 2 Term 1 0 Miscarriages/Ectopic 0 Living Children 1 A&P Assessment and plan 1. Spontaneous vaginal delivery: Proceed with routine care PDMP PDMP Reviewed: Not Reviewed Coding Level of Care Code Acute Code for Chg Fwd Diagnoses Spontaneous vaginal delivery O80
--- NOTE | 2025-03-28 17:17 | PC.NURSE ---
PATIENT UP TO BATHROOM AND VOIDED AND WAS INSTRUCTED ON [facility], THEN AMBULATED TO OB 9, ORIENTED TO ROOM, BED CONTROLS AND PP PACK. TOLD HER THAT IF NEEDED THAT WE WOULD HELP HER UP ONCE MORE THEN SHE COULD BE UP ON HER OWN.
[2025-03-29 03:02] LABS: Hematocrit 32.1 % (36-47); Hemoglobin 10.40 g/dL (11.27-16.99); Mean Corpuscular HGB Conc 32.4 g/dL (30-55); Mean Corpuscular Hemoglobin 29.4 pg (27-33); Mean Corpuscular Volume 90.7 fl (85-98); Platelet Count 218 10^3/cmm (157-399); Red Blood Count 3.54 10^6/uL (3.85-5.65); White Blood Count 11.54 10^3/uL (3.29-11.43)
[2025-03-29 05:40] VITALS: BP 114/72; PULSE 53; RESP 16; O2SAT 98
--- NOTE | 2025-03-29 07:36 | PM.OBGYDC ---
Discharge Providers [employer] Date of Admission: 03/28/25 12:47 Date of Discharge: 03/29/25 Attending Provider at Admission: Nolan Maciel MD Attending Provider at Discharge: Nolan Maciel MD Diagnoses at Discharge Discharge Diagnosis 1. Spontaneous vaginal delivery: Reason for Visit Reason for Visit: CTX Hospital Course Hospital Course This is a 24-year-old G2, P2 that presented at 38 weeks 4 days with active contractions. The patient delivered a viable female vaginally without complication. Patient had no issues. Lochia has been appropriate and vital signs have been stable. Information Peripartum Data: Infant Delivery Method: Vaginal Laceration description: None Episiotomy description: None complications: none Physical Exam Const: COMMON NORMALS: no acute distress, patient oriented x3 and alert Neck/C-Spine: COMMON NORMALS: no JVD Resp: COMMON NORMALS: normal respiratory effort and No retractions Cardio: COMMON NORMALS: no JVD, regular rate and regular rhythm RATE: regular rate RHYTHM: regular rhythm GI: OTHER: Uterus firm and below umbilicus Extremity: COMMON NORMALS: no clubbing, cyanosis or edema Neuro: COMMON NORMALS: patient oriented x3, moves all extremities, no focal motor deficits and no sensory deficits noted SENSORIUM/ORIENTATION: Yes alert Psych: APPEARANCE: Yes grossly normal Skin: COMMON NORMALS: no rashes or lesions noted GENERAL SKIN EXAM: no rashes or lesions noted History History History 2 Term 1 0 Miscarriages/Ectopic 0 Living Children 1 Discharge Data Studies Completed and Pending Laboratory Results WBC 11.54 10^3/uL (3.29-11.43) H 03/29/25 02:45 RBC 3.54 10^6/uL (3.85-5.65) L 03/29/25 02:45 Hgb 10.40 g/dL (11.27-16.99) L 03/29/25 02:45 Hct 32.1 % (36-47) L 03/29/25 02:45 MCV 90.7 fl (85-98) 03/29/25 02:45 MCH 29.4 pg (27-33) 03/29/25 02:45 MCHC 32.4 g/dL (30-55) 03/29/25 02:45 RDW 13.2 % (12.1-15.1) 03/29/25 02:45 Plt Count 218 10^3/cmm (157-399) 03/29/25 02:45 MPV 12.4 fL (7.4-10.4) H 03/29/25 02:45 Neut % (Auto) 64.7 % 03/28/25 13:00 Lymph % (Auto) 28.2 % 03/28/25 13:00 Christian % (Auto) 6.0 % 03/28/25 13:00 Eos % (Auto) 0.3 % 03/28/25 13:00 Baso % (Auto) 0.6 % 03/28/25 13:00 Neut # (Auto) 5.59 10^3/uL (1.8-7.7) 03/28/25 13:00 Lymph # (Auto) 2.4 10^3/uL (0.8-4.8) 03/28/25 13:00 Christian # (Auto) 0.5 10^3/uL (0.2-0.9) 03/28/25 13:00 Eos # (Auto) 0.0 10^3/uL (0.0-0.8) 03/28/25 13:00 Baso # (Auto) 0.1 10^3/uL (0.0-0.1) 03/28/25 13:00 Nucleated RBC % (auto) 0 % 03/28/25 13:00 Nucleated RBCs # 0.0 /100WBC 03/28/25 13:00 Insulin-like GF I Negative 03/28/25 11:55 Fluid pH (paper) Inconclusive 03/28/25 11:55 Blood Type O Positive 03/28/25 13:00 Rho(D) Type Rh positive 03/28/25 13:00 Antibody Screen Negative 03/28/25 13:00 Vitals Last Vital Signs Pulse 53 L 03/29/25 05:40 Resp 16 03/29/25 05:40 BP 114/72 03/29/25 05:40 Pulse Ox 98 03/29/25 05:40 O2 Del Method Room Air 03/29/25 05:40 Results Labs OB ([facility]): Blood Type O Positive 03/28/25 Antibody Screen Negative 03/28/25 Hct, (36-47) 32.1 % L Today Hgb, (11.27-16.99) 10.40 g/dL L Today Rho(D) Type Rh positive 03/28/25 Plt Count, (157-399) 218 10^3/cmm Today Hep Bs Antigen, (Nonreactive) Non-reactive 09/04/24 Hepatitis C Antibody, (Nonreactive) Non-reactive 09/04/24 Rubella IgG Antibody, (0.0-10.0) 120.3 IU/mL H 09/04/24 RPR, (Nonreactive) Nonreactive 09/04/24 HIV 1&2 Ab & HIV 1 Ag, (Non-Reactiv) Non-reactive 09/04/24 TSH, (0.27-4.20) 2.13 uIU/mL 09/04/24 Hemoglobin A1c, (4.0-6.0) 5.1 % 02/07/25 Ser , Semi-Qnt 79838.00 mIU/mL 08/22/24 HCG, Qual, (Negative) Positive H 08/22/24 Urine Opiates Screen, (Negative) Negative ng/mL 09/04/24 Ur Barbiturates Screen, (Negative) Negative ng/mL 09/04/24 Ur Phencyclidine Scrn, (Negative) Negative ng/mL 09/04/24 Ur Amphetamines Screen, (Negative) Negative ng/mL 09/04/24 U Benzodiazepines Scrn, (Negative) Negative ng/mL 09/04/24 Urine Cocaine Screen, (Negative) Negative ng/mL 09/04/24 U Marijuana (THC) Screen, (Negative) Negative ng/mL 09/04/24 Micro Urine Specimen 09/04/24 Pap Smear Interpret See note 09/10/24 Discharge Plan Discharge Patient Disposition: Home Condition: Stable Prescriptions: Continued PNV #[id number] 30 mg iron-10 mg iron-1 mg capsule 1 cap PO DAILY Discharge Order = DC NOW: Discharge Order (Routine); Ordered 03/29/25 Ordered By: Nolan Maciel Referrals: Nolan Maciel MD [Physician, Family Practice] - 6 Weeks Discharge Diet: Usual diet Discharge Activity: Limit activity as instructed Patient Instructions: Depression (DC), Opioid Safety (DC), Preeclampsia and Eclampsia After Delivery (GEN), Hemorrhage (DC), OB Discharge Report, OB Food/Drug Interaction Guide, OB Care at Home, Opioid Safety, OB Vaginal Deliveries, Patient Portal & Jeremías Instructions, Abnormal Bleeding Discharge Attestations [employer] Time Spent in Discharge Care*: less than 30 min Coding Level of Care Code Acute Code for Chg Fwd Diagnoses Spontaneous vaginal delivery O80
--- NOTE | 2025-03-29 08:00 | ANE.PACU2 ---
Inpatient post-anesthesia follow up: Airway intact: Yes Vital signs: Temperature 98.0 F Pulse Rate 58 Respiratory Rate 16 Blood Pressure 113/66 Pulse Oximetry 97 Oxygen Delivery Me thod Room Air Oxygen Flow Rate Fraction of Inspir ed Oxygen Hydration adequate: Yes Nausea and vomiting: No Pain level: 1 Mental status: Baseline Epidural Start/End: Epidural Start Date: 03/23/25 Epidural Start Time: 14:10 Epidural End Date: 03/28/25 Epidural End Time: 15:13
[2025-03-29 10:00] VITALS: BP 130/83; PULSE 78; RESP 16; TEMP 36.8; O2SAT 98
[2025-03-29] MEDS: PRENATAL VIT NO.130/IRON/FOLIC 1 EACH TABLET PO (10:00)
[2025-03-29 18:20] VITALS: BP 113/66; PULSE 58; RESP 16; TEMP 36.7; O2SAT 97
== END 2025-03-29 17:15 | disposition home or self-care (01) | DRG 807 ==
LOC: OPOB 12:47 → OBGYN 12:47
PROVIDERS: Admitting Provider Family Medicine; Visit Provider Family Medicine
DX: O99.824 Streptococcus B carrier state complicating childbirth (principal); Z37.0 Single live birth; Z3A.38 38 weeks gestation of pregnancy
CPT/HCPCS: 36415; 59025; 59409; 83986; 84112; 85025; 85027; 86850; 86900; 99211; J0690; J3490; J7030; J9999